=== PATIENT | male | born 1950 | race Caucasian/White ===

== ENCOUNTER 2017-01-13 17:06 | Inpatient (IN) | payer OTHER, MEDICARE ==
[~2017-01-13] VITALS: Ht 190.5 cm; Wt 88.5 kg
[~2017-01-13 17:06] MED LIST: HUMALOG100 UNIT/2 SC; LANTUS100 UNIT/1 SC; LEVOTHYROXINE137 MCG PO; PRAVASTATIN SOD40 M2 PO
--- NOTE | 2017-01-13 17:27 | NUR ---
66 YEAR OLD MALE IDDM STATES THAT HE WAS SICK WITH THE FLU FOR THE PAST 2 DAYS AN D THAT HE COULD NOT FIND HIS INSULIN SO HE HAS NOT USED IT IN 2 DAYS. HIS DAUGHTER WENT TO CHECK ON HIM AND HIS SUGAR READ HIGH, FS 421 AT TRIAGE, PT COMPLAINS OF JUST NOT FEELING WELL, WHILE TALKING TO THIS NURSE PT PROJECTILE VOMITTED ALL OVER TRIAGE FLOOR. DENIES PAIN
--- NOTE | 2017-01-13 17:48 | ED GENERAL ADULT ---
History of Present Illness General Chief Complaint: General Adult Stated Complaint: TYPE 1 DIABETIC, ELEVATED BLOOD SUGAR Source: patient, family, old records Exam Limitations: no limitations Vital Signs & Intake/Output Vital Signs & Intake/Output Vital Signs Date Time Temp Pulse Resp B/P Pulse O2 O2 Flow FiO2 Ox Delivery Rate 01/13 1724 97.6 96 18 119/63 93 Room Air Allergies Coded Allergies: NO KNOWN ALLERGIES (02/29/16) Triage Note: 66 YEAR OLD MALE IDDM STATES THAT HE WAS SICK WITH THE FLU FOR THE PAST 2 DAYS AN D THAT HE COULD NOT FIND HIS INSULIN SO HE HAS NOT USED IT IN 2 DAYS. HIS DAUGHTER WENT TO CHECK ON HIM AND HIS SUGAR READ HIGH, FS 421 AT TRIAGE, PT COMPLAINS OF JUST NOT FEELING WELL, WHILE TALKING TO THIS NURSE PT PROJECTILE VOMITTED ALL OVER TRIAGE FLOOR. DENIES PAIN Triage Nurses Notes Reviewed? yes Onset: Abrupt Duration: day(s): (3), constant, continues in ED Timing: recent history Injury Environment: home No Modifying Factors: none HPI: 66-year-old male comes into emergency room with complaints of not taking his insulin for the past 3 days. Patient reports that the insulin fell behind his bed and he cannot find it and therefore he just didn't take it. He did not call his doctor. He has been feeling weak and dizzy. Type I diabetic. Diagnosed at 22 years age. Denies any chest pain. Patient reports that he was sick earlier in the week with flulike symptoms. Last Wednesday he started with a cough fever chills myalgias. Patient reports although symptoms have resolved other than a residual cough. Denies any fever or chills or bodyaches at this time. Denies any physical pain. One episode of vomiting about 5 minutes ago. (ROXI BEAL) Reconcile Medications Insulin Aspart (Novolog) 100 UNIT/ML VIAL 0 SQ TIDAC/HS DIABETES BEFORE MEALS Blood Insulin Sugar Units <80 0 81-150 6 151-200 7 201-250 8 251-300 9 301-350 10 351-400 11 >400 12 units and Call Doctor AT BEDTIME Blood Insulin Sugar Units <80 0 81-100 0 101-200 0 201-250 0 251-300 2 301-350 3 351-400 4 >400 5 units and Call Doctor Insulin Detemir (Levemir) 100 UNIT/ML VIAL 10 UNITS SQ BID DIABETES Levothyroxine Sodium 137 MCG TABLET 1 TAB PO DAILY THYROID (Reported) Pravastatin Sodium 40 MG TABLET 1 TAB PO DAILY CHOLESTEROL (Reported) (CINDY JOHNSON,NICOLAS) Past History Travel History Traveled to [place] past 21 day No Medical History Any Pertinent Medical History? see below for history Neurological: NONE EENT: NONE Cardiovascular: NONE Respiratory: NONE Gastrointestinal: NONE Hepatic: NONE Renal: NONE Musculoskeletal: NONE Psychiatric: NONE Endocrine: diabetes, hyperthyroidism Blood Disorders: NONE Cancer(s): NONE Surgical History Surgical History: non-contributory Psychosocial History What is your primary language Indian Tobacco Use: Never used ETOH Use: denies use Illicit Drug Use: denies illicit drug use Family History Hx Contributory? No (ROXI BEAL) Review of Systems Review of Systems Constitutional: Reports: no symptoms. EENTM: Reports: no symptoms. Respiratory: Reports: see HPI. Cardiovascular: Reports: no symptoms. GI: Reports: see HPI. Genitourinary: Reports: no symptoms. Musculoskeletal: Reports: no symptoms. Skin: Reports: no symptoms. Neurological/Psychological: Reports: no symptoms. Hematologic/Endocrine: Reports: no symptoms. Immunologic/Allergic: Reports: no symptoms. All Other Systems: Reviewed and Negative (ROXI BEAL) Physical Exam Physical Exam General Appearance: well developed/nourished, no apparent distress, alert Head: atraumatic, normal appearance Eyes: Bilateral: normal appearance, PERRL, EOMI. Ears, Nose, Throat: normal pharynx, normal ENT inspection, hearing grossly normal Neck: normal inspection, full range of motion Respiratory: normal breath sounds, no respiratory distress Cardiovascular: regular rate/rhythm Gastrointestinal: soft Back: normal inspection Extremities: normal inspection, normal range of motion Neurologic/Psych: awake, alert, oriented x 3, normal mood/affect Skin: intact, normal color Core Measures ACS in differential dx? No CVA/TIA Diagnosis: No Severe Sepsis Present: No Septic Shock Present: No (ROXI BEAL) Progress Differential Diagnoses I considered the following diagnoses in my evaluation of the patient: DKA, hyperosmolar, dehydration, pneumonia, sepsis, electroluyte imblance Diagnostic Imaging: Viewed by Me: Radiology Read. Discussed w/RAD: Radiology Read. Radiology Impression: SERVICE DATE: 01/13/17 EXAM TYPE: RAD - XRY- PORTABLE CHEST XRAY EXAMINATION: XR PORTABLE CHEST CLINICAL INFORMATION: Cough, fever COMPARISON: None TECHNIQUE: Portable AP view of the chest was obtained. FINDINGS: Kyphotic projection with rotation. The cardiac size, mediastinal contours, zoie and vasculature are within normal limits. There is no consolidation, pleural fluid or pneumothorax. Limited bone detail. No definite focal bony lesion IMPRESSION: No consolidation or edema. DICTATED BY: JANIA LEGER MD DATE/TIME DICTATED:01/13/171827 ENERGY CONSERVATION TECHNICIAN:ALESSIA DATE/TIME TRANSCRIBED:01/13/171827 Initial ED EKG: normal intervals, normal p-waves, normal sinus rhythm, rate (84) , nonspecific ST T wave chg, LEFT ANTERIOR FASCICULAR BLOCK (ROXI BEAL) Plan of Care: Orders Procedure Date/time Status Nothing by Mouth 01/14 B Active LACTIC ACID 01/13 2046 Active Add-on Test (ER Only) 01/13 1915 Active Admit to inpatient 01/13 1914 Active Vital Signs 01/13 1914 Active Code Status 01/13 1914 Active URINE DRUGS OF ABUSE 01/13 184 Active URINALYSIS 01/13 184 Complete MIXED VENOUS BLOOD GAS (GEN) 01/13 1746 Complete TROPONIN LEVEL 01/13 1746 Active LACTIC ACID 01/13 1746 Active COMPREHENSIVE METABOLIC PANEL 01/13 1746 Active CBC WITHOUT DIFFERENTIAL 01/13 1746 Complete ACETONE 01/13 174 Active EKG 01/13 1746 Active Current Medications Sig/Pollo Start time Last Medication Dose Stop Time Status Admin Insulin Human Regular 100 UNIT ONCE ONE 01/13 1900 AC (Novolin R (Insulin 01/14 1959 Drip)) Sodium Chloride 100 ML (Normal Saline 0.9%) Insulin Human Regular 5 UNITS ONCE ONE 01/13 1830 CAN (Novolin R) 01/13 1831 Laboratory Tests 01/13/17 184: Methadone Screen Pending, Barbiturate Screen Pending, Ur Phencyclidine Scrn Pending, Amphetamines Screen Pending, U Benzodiazepines Scrn Pending, Urine Cocaine Screen Pending, Urine Cannabis Screen Pending, Urine Color YEL, Urine Clarity CLEAR, Urine pH 5.5, Ur Specific Melba 1.020, Urine Protein NEG, Urine Ketones >=80, Urine Nitrite NEG, Urine Bilirubin NEG, Urine Urobilinogen 0.2, Ur Leukocyte Esterase NEG, Ur Microscopic EXAM NOT REQUIRED, Urine Hemoglobin NEG, Urine Glucose >=1000 H 01/13/17 1815: Bicarbonate Actual 12.3 L, Mixed VBG pH 7.18 L, Mixed VBG pCO2 34 L, Mixed VBG O2 Saturation 44, P-50 (Temp Corrected) Pending, Carboxyhemoglobin 1.0 L, O2 Concentration % RA, O2 Delivery Method RA 01/13/17 1754: Anion Gap 27 H, Estimated GFR 51 L, BUN/Creatinine Ratio 19.3, Glucose 599 *H, Lactic Acid 3.6 H, Calcium 9.0, Total Bilirubin 1.2, AST 46, ALT 44, Alkaline Phosphatase 150 H, Troponin I < 0.01, Total Protein 7.4, Albumin 4.3, Globulin 3.1, Albumin/Globulin Ratio 1.4, CBC w Diff NO MAN DIFF REQ, RBC 4.86, MCV 100.7 H, MCH 33.9 H, RDW 13.1, MPV 8.1, Gran % 85.4 H, Lymphocytes % 4.2 L, Monocytes % 10.3 H, Eosinophils % 0.1, Basophils % 0 L, Absolute Granulocytes 7.3 H, Absolute Lymphocytes 0.4 L, Absolute Monocytes 0.9 H, Absolute Eosinophils 0, Absolute Basophils 0, PUBS MCHC 33.7, Acetone Level Pending Departure Departure Condition: Stable Referrals: UNKNOWN (PCP/Family) Departure Forms: Customer Survey General Discharge Information (ROXI BEAL) Departure Time of Disposition: 1913 Disposition: STILL A PATIENT Clinical Impression Primary Impression: DKA (diabetic ketoacidoses) Prescriptions: Current Visit Scripts Insulin Detemir (Levemir) 10 UNITS SQ BID #6 Vial Insulin Aspart (Novolog) 0 SQ TIDAC/HS #10 VIAL BEFORE MEALS Blood Insulin Sugar Units <80 0 81-150 6 151-200 7 201-250 8 251-300 9 301-350 10 351-400 11 >400 12 units and Call Doctor AT BEDTIME Blood Insulin Sugar Units <80 0 81-100 0 101-200 0 201-250 0 251-300 2 301-350 3 351-400 4 >400 5 units and Call Doctor Admission Note Spoke With: [facility] Documentation of Exam: Documentation of any treatments & extenuating circumstances including Concerns Regarding Discharge (functional status, medication knowledge or non-compliance, living conditions, etc.) that warrant an admission rather than observation: [IV FLUIDS, IV INSULIN DRIP, MONITOR ELECTROLYTES CLOSELY, ADD K TO FLUIDS WHEN NEEDED, ENDOCRINOLOGY CONSULTATION] PA/TYPING ELEMENT MACHINE OPERATOR Co-Sign Statement Statement: ED Attending supervision documentation- [X] I saw and evaluated the patient. I have also reviewed all the pertinent lab results and diagnostic results. I agree with the findings and the plan of care as documented in the PA's/TYPING ELEMENT MACHINE OPERATOR's documentation. [X] I have reviewed the ED Record and agree with the PA's/TYPING ELEMENT MACHINE OPERATOR's documentation. [] Additions or exceptions (if any) to the PAs/TYPING ELEMENT MACHINE OPERATOR's note and plan are summarized below: [] (CINDY JOHNSON,NICOLAS) Critical Care Note Critical Care Note Critical Care Time: 30-74 min (60 MINUTES) (ROXI BEAL)
--- NOTE | 2017-01-13 17:52 | NUR ---
IV ESTABLISHED AND NS IVF BOLUS RUNNING. PT IS LETHARGIC BUT ABLE TO CONVERSATE AND ORIENTED X3.
--- NOTE | 2017-01-13 18:02 | NUR ---
PT TO RADIOLOGY VIA STRETCHER
[2017-01-13 18:10] LABS: ABSOLUTE BASOPHIL COUNT 0 /CUMM (0.0-0.2); ABSOLUTE EOSINOPHIL COUNT 0 /CUMM (0.0-0.7); ABSOLUTE GRANULOCYTE CT 7.3 /CUMM (1.4-6.5); ABSOLUTE LYMPH COUNT 0.4 /CUMM (1.2-3.4); ABSOLUTE MONOCYTE COUNT 0.9 /CUMM (0.10-0.60); BASOPHIL % 0 % (0.0-2.0); EOSINOPHIL % 0.1 % (0-5); GRANULOCYTE % 85.4 % (42.2-75.2); HEMATOCRIT 48.9 % (42-52); MEAN CORPUSCULAR HGB 33.9 PG (27.0-31.0); MEAN CORPUSCULAR HGB CONC 33.7 G/DL (33.0-37.0); MEAN CORPUSCULAR VOLUME 100.7 FL (80.0-94.0); MEAN PLATELET VOLUME 8.1 FL (7.4-10.4); PLATELET COUNT 194 /CUMM (130-400); RBC DISTRIBUTION WIDTH 13.1 % (11.5-14.5); RED BLOOD CELL CT 4.86 /CUMM (4.70-6.10); WHITE BLOOD CELL COUNT 8.6 /CUMM (4.8-10.8)
--- NOTE | 2017-01-13 18:20 | NUR ---
RT CALLED FOR VBG
--- NOTE | 2017-01-13 18:32 | RADIOLOGY REPORT ---
EXAMINATION: XR PORTABLE CHEST CLINICAL INFORMATION: Cough, fever COMPARISON: None TECHNIQUE: Portable AP view of the chest was obtained. FINDINGS: Kyphotic projection with rotation. The cardiac size, mediastinal contours, zoie and vasculature are within normal limits. There is no consolidation, pleural fluid or pneumothorax. Limited bone detail. No definite focal bony lesion IMPRESSION: No consolidation or edema.
--- NOTE | 2017-01-13 18:33 | NUR ---
COLUMBA SHRESTHA IN ROOM TO DISCUSS PLAN
--- NOTE | 2017-01-13 19:00 | NUR ---
CRITICAL TEST RESULTS [id number] MELLO ROBERTS 66 M TESTS AND RESULTS: GLUCOSE 599, K 6.2 Results received and read back by: TUAN MCFADDEN Results received date and time: 01/13/17 190 The following provider was notified of the results, and read the results back: FDAY Notified date and time: 01/13/17 at 1902
--- NOTE | 2017-01-13 19:04 | NUR ---
DAUGHTER RAFA CAN BE REACHED AT [phone] OR AT HER WORK (SCHOOL) [phone]
--- NOTE | 2017-01-13 19:38 | NUR ---
DR NINO AT BEDSIDE FOR EVAL. REPEAT ACCUCHECK 45 MINS AFTER ADMINISTRATION OF IV INSULIN 497 AND MD AWARE. INSULIN GTT INITIATED AT 7 UNITS PER HOUR PER ORDER AND DR WHITE. DR NINO IN AGREEMENT WITH RATE. PT REFUSING CHOI CATH AT THIS TIME AND AGREEING TO USE URINAL FOR OUTPUT MONITORING. PAPER SCRUB PANTS PROVIDED TO ENCOURAGE CHANGING OUT OF STREET CLOTHES. REMAINS AAOX3 AND DENIES PAIN. NORMAL SINUS ON CM WITH OCCASSIONAL PVC, RATE 90'S. DENIES SOB. ABLE TO STAND INDEPENDENTLY. NEUROS INTACT. DENIES SKIN BREAKDOWN. NS IVF CONTINUE TO RUN WIDE OPEN
--- NOTE | 2017-01-13 20:16 | History & Physical ---
YUNIOR YOO 01/13/17 2015: General Information and HPI MD Statement: I have seen and personally examined MELLO ROBERTS and documented this H&P. The patient is a 66 year old M who presented with a patient stated chief complaint of [dka]. Source of Information: patient Exam Limitations: no limitations History of Present Illness: This is a 66-year-old male with past medical history of type 1 diabetes mellitus , hypothyroidism on levothyroxine, hyperlipidemia on pravastatin came in from home today after being found hyperglycemic at home by daughter. Apparently the patient was doing all right, until one week ago he started having flulike symptoms, generalized body ache, postnasal dripping, lethargy and weakness along with mild headache and severe cough. He says that he had very loud cough however he was not bringing up a lot of sputum. He tried taking over -the-counter aspirin. He was improving gradually when on Wednesday which is 2 days prior to today's admission, he lost the whole bag of his diabetes supply which contain medications, fingerstick, lancet behind his bed, and he could never get it back therefore did not take any Humalog did not monitor his sugar since 01/11/2017. 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 wharton was 6 months ago. After this 5 months ago, he started to have frequent episodes of hypoglycemia into 40s and 50s for which he had a couple of ER visits , he himself thought that this was secondary to reaction to Lantus he stopped taking his Lantus which normally he used to take 20 units subcutaneous daily at bedtime by himself and has not been taking any Lantus for last 4-5 months. In the ER he was alert oriented, little irritable but was cooperative and provided the entire history himself. His daughter lives nearby and visits him on and off. 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 He is independent with all activities of daily living. Allergies/Medications Allergies: Coded Allergies: NO KNOWN ALLERGIES (02/29/16) Home Med list Insulin Lispro (Humalog) (Unknown Strength) VIAL (Unknown Dose) SC AC DIABETES (Reported) Insulin-Lantus (Lantus) 100 UNIT/1 ML VIAL 20 UNITS SC QHS DIABETES (Reported ) Levothyroxine Sodium 137 MCG TABLET 1 TAB PO DAILY THYROID (Reported) Pravastatin Sodium 40 MG TABLET 1 TAB PO DAILY CHOLESTEROL (Reported) Compliance With Home Meds: POOR Past History Travel History Traveled to [place] past 21 day No Medical History Neurological: NONE EENT: NONE Cardiovascular: NONE Respiratory: NONE Gastrointestinal: NONE Hepatic: NONE Renal: NONE Musculoskeletal: NONE Psychiatric: NONE Endocrine: diabetes, hyperthyroidism Blood Disorders: NONE Cancer(s): NONE Surgical History Surgical History: non-contributory Past Family/Social History Psychosocial History Where do you live? Home Who Do You Live With? self Services at Home: None Primary Language: [place] Smoking Status: Former Smoker (quit 45 years ago) ETOH Use: denies use Illicit Drug Use: denies illicit drug use Functional Ability ADLs Independent: dressing, eating, toileting, bathing. Ambulation: independent IADLs Independent: shopping, housework, finances, food prep, telephone, transportation , medication admin. 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 Denies: diaphoresis. EENTM: Reports: nasal congestion. Denies: blurred vision, double vision, visual changes, eye pain, eye drainage, eye tearing. Cardiovascular: Denies: chest pain, edema, orthopena, palpitations, peripheral edema, syncope. Respiratory: Reports: cough. Denies: hemoptysis, orthopnea, short of breath, sputum production, stridor, wheezing. GI: Denies: abdominal pain, bloating, constipation, diarrhea, distention, melena. Genitourinary: Reports: frequency. Denies: discharge, dysuria, hematuria. Musculoskeletal: Reports: joint pain, muscle pain. Denies: back pain, gout, joint swelling. Skin: Reports: dryness. Denies: cysts, change in skin color, change in hair/nails. Neurological/Psychological: Denies: anxiety, ataxia, cognitive dysfunction, confusion, depressed, dementia. Hematologic/Endocrine: Reports: no symptoms. Immunologic/Allergic: Reports: no symptoms. All Other Systems: Reviewed and Negative Exam & Diagnostic Data Last 24 Hrs of Vital Signs/I&O Vital Signs Date Time Temp Pulse Resp B/P Pulse O2 O2 Flow FiO2 Ox Delivery Rate 01/13 2113 98.0 90 16 125/60 99 Room Air 01/13 1950 98.0 94 16 128/84 98 Room Air 01/13 1943 99 Room Air 01/13 1936 97.8 96 16 146/69 96 Room Air 01/13 1724 97.6 96 18 119/63 93 Room Air Physical Exam General Appearance Alert, Oriented X3, Cooperative, irritable Skin No Rashes, No Breakdown HEENT Atraumatic, PERRLA, EOMI Neck Supple, No JVD Lymphatic no lad Cardiovascular Regular Rate, Normal S1, Normal S2, No Murmurs Lungs Clear to Auscultation, Normal Air Movement Abdomen Normal Bowel Sounds, Soft, No Tenderness Neurological Normal Speech, Strength at 5/5 X4 Ext, Normal Tone, Sensation Intact, Cranial Nerves 3-12 NL, Reflexes 2+ Extremities No Clubbing, No Cyanosis, No Edema, Normal Pulses Vascular Normal Pulses Last 24 Hrs of Labs/Sean: Laboratory Tests 01/13/172124: Lactic Acid Pending 01/13/172124: Sodium Pending, Potassium Pending, Chloride Pending, Carbon Dioxide Pending, Anion Gap Pending, BUN Pending, Creatinine Pending, Glucose Pending, Calcium Pending, Phosphorus Pending, Magnesium Pending, Total Bilirubin Pending, AST Pending, ALT Pending, Albumin Pending 01/13/17 184: Urine Opiates Screen < 100.00, Methadone Screen < 40, Barbiturate Screen < 60, Ur Phencyclidine Scrn < 6.00, Amphetamines Screen < 100, U Benzodiazepines Scrn < 85, Urine Cocaine Screen < 50, Urine Cannabis Screen < 5.00, Urine Color YEL, Urine Clarity CLEAR, Urine pH 5.5, Ur Specific [place] 1.020, Urine Protein NEG, Urine Ketones >=80, Urine Nitrite NEG, Urine Bilirubin NEG, Urine Urobilinogen 0.2, Ur Leukocyte Esterase NEG, Ur Microscopic EXAM NOT REQUIRED, Urine Hemoglobin NEG, Urine Glucose >=1000 H 01/13/171814: Bicarbonate Actual 12.3 L, Mixed VBG pH 7.18 L, Mixed VBG pCO2 34 L, Mixed VBG O2 Saturation 44, P-50 (Temp Corrected) Pending, Carboxyhemoglobin 1.0 L, O2 Concentration % RA, O2 Delivery Method RA 01/13/17 1754: Anion Gap 27 H, Estimated GFR 51 L, BUN/Creatinine Ratio 19.3, Glucose 599 *H, Lactic Acid 3.6 H, Calcium 9.0, Total Bilirubin 1.2, AST 46, ALT 44, Alkaline Phosphatase 150 H, Troponin I < 0.01, Total Protein 7.4, Albumin 4.3, Globulin 3.1, Albumin/Globulin Ratio 1.4, CBC w Diff NO MAN DIFF REQ, RBC 4.86, MCV 100.7 H, MCH 33.9 H, RDW 13.1, MPV 8.1, Gran % 85.4 H, Lymphocytes % 4.2 L, Monocytes % 10.3 H, Eosinophils % 0.1, Basophils % 0 L, Absolute Granulocytes 7.3 H, Absolute Lymphocytes 0.4 L, Absolute Monocytes 0.9 H, Absolute Eosinophils 0, Absolute Basophils 0, PUBS MCHC 33.7, Acetone Level POSITIVE AT 1 :32 DIL Diagnostic Data EKG Results NSR, rate of 95,low voltage in frontal leads, ME 204,Qtc 451 CXR Results NO acute cardiopulmonary findings. Assessment/Plan Assessment: In summary this is a 66-year-old, previous smoker (45 years ago), nonalcoholic, no other illicit drug abuse male living by himself with past medical history of type 1 diabetes mellitus on insulin, hypothyroidism on levothyroxine, hyperlipidemia on statin came in with chief complain of lethargy and weakness along with hyperglycemia, with flulike symptoms including lethargy, weakness, body ache, postnasal dripping one week prior to admission, which had been improving, however had worsening hyperglycemia after being noncompliant with his diabetic medications, self stopped the Lantus 5 months prior to this admission and did not take his Humalog since last 48 hours due to losing his diabetic supplies behind his bed which he could not retrieve. Vitals in the ER afebrile temperature of 97.6, pulse of 96, respiration of 18, blood pressure of 119/63, 93% on room air. Relevant labs white count of 8.6, H/H was 16.5/48.9, platelet of 194. Sodium noted to be 128, potassium of 6.2, BUN and creatinine 27/1.4, blood sugar of 599. ABG showed anion gap metabolic acidosis with pH of 7.18, PCO2 of 34, bicarbonate of 12, anion gap of 27. Initial set of lactic acid was elevated to 3.6. Liver function tests are within normal limits, alkaline phosphatase elevated to 150. First set of troponin was negative less than 0.01. EKG showed normal sinus rhythm with a rate of 94, QTC 451, no acute ST-T wave changes. Chest x-ray did not show any acute cardiopulmonary changes. Patient had one episode of vomiting while in the ER. Problem list along with assessment and plan. Problem #1 type 1 diabetes mellitus with diabetic ketoacidosis. * Anion gap metabolic acidosis with anion gap of 27, blood sugar of 599. * Continue to monitor vitals every shift, continue monitoring fingersticks every hour, continue IV insulin drip and titrate as per fingerstick. * Continue normal saline at the rate of 150-200 mL for now. * Switch IV normal saline to D5 half normal saline once the sugars are below 250. * Potassium noted to be 6.2, follow-up ICU bundle ( 4 hours latter) showed potassium of 4.5. * Once the sugar is below 250 we will add 20 of KCl to the changed iv fluids. * Continue to monitor ICU bundle along with anion gap every 4 hourrs, next icu bundle at 2 AM followed by 6 AM. * Repeat ABG at 6 AM. * Once the anion gap is less than 12, bicarbonate is greater than 15 and pH is greater than 7.3, we will consider switching the insulin drip to subcutaneous insulin ( in am) * Continue to monitor potassium closely. * Patient is tolerating food fine, will starton full liquid diet for now. * Advance to diabetic diet once the patient is switched to subcutaneous insulin. * Case discussed with endocrinology Riky Floyd MD,plan disucssed, he will see the patient in a.m. * Continue insulin drip tonight and titrate to maintain the sugars above 180. * Continue to trend lactic acid untill below 2. * Will check Hba1c Problem #2 Acute kideny injury * BUN and creatinine noted to be 27/1.4. * Most likely secondary to dehydration. * Continue IV hydration and continue to monitor creatinine. * Repeat ICU lab bundle showed improvement in creatinine. * Continue to monitor intake and output. * Avoid nehprotoxins. Problem #3 hyponatremia - 128 * Psuedohyponetremia due to hyperglucemia * Corrected sodium levels of 136. * Continue to treat DKA with hydration. * Continue to monitor. Problem #4 hypothyroidism. * TSH and free t4 Added * Continue levothyroxine at 137 mcg daily. Problem #4 Hyperlipidemia * continue pravastatin FC DVt Px : heparin PP Full liquid diet, advance to diabetic once switched to Sc insulin As Ranked By This Provider Problem List: 1. DKA (diabetic ketoacidoses) 2. Acute kidney failure 3. Hyperlipidemia 4. Hypothyroidism Core Measures/Miscellaneous Acute Coronary Syndrome ACS Diagnosis: No Cerebrovascular Accident CVA/TIA Diagnosis: No Congestive Heart Failure CHF Diagnosis: No Venous Thromboembolism VTE Risk Factors: Age > 40 No [facility] VTE prophylaxis d/t: No contraindications No VTE Pharm Prophylaxis d/t: No contraindications VTE Diagnosis: No VTE Type: NONE VTE Confirmed by (Test): NONE Severe Sepsis Severe Sepsis Present: No Septic Shock Septic Shock Present: No Miscellaneous Documentation Attending Case Discussed With: AYAZ NINO MD Primary Care Physician: UNKNOWN Patient sees these Specialists Endocrionologist Dr Husam Wharton, Dr floyd to see patient in am. Level of Patient Care: Critical Care (CRI) JAQUELINE NINO MD 01/13/17 2353: Attending MD Review Statement Attending Statement Attending MD Statement: examined this patient, discuss w/resident/PA/DUSTLESS OPERATOR, agreed w/resident/PA/DUSTLESS OPERATOR Attending Assessment/Plan: 66 yo M with h/o T1DM for over 46 yrs (follows Dr. Husam Wharton at [place]), hypothyroidism, HLD, who had a prodrome of flu-like symptoms 3 days ago (self treated with aspirin), and did not take his insulin for past 2 days (stating his insulin pouch fell under his bed), is here feeling unwell and with sugars of > 400. While in the ER, he was nauseous and vomited twice. C/o cough, unable to bring up phlegm, chest discomfort associated with cough and poor appetite. He denies fever, chills, dyspnea, abdominal pain, diarrhea or urinary symptoms. Patient has not taken levemir or lantus for over 6 months because it interacts with Humalog cauging him multiple episodes of hypoglycemia. VSS. He has dry mucous membranes, otherwise unremarkable exam. Labs: macrocytosis, Na 128, K 6.2, bicarb 12, AG 27, BUN 27, creat 1.4 (baseline 0.8), glucose 599, lactic acid 3.6, trop neg. AB.18/34/44/12. UA clear, with glucose >1000. S. Acetone positive. Utox neg. CXR neg. EKG: SR. 1. Diabetic ketoacidosis 2/2 noncompliance with lactic acidosis. ICU admit, accucheks Q1, NS 3L bolus followed by maintenance, insulin drip titrate based on sugars, ICU bundle Q4, once sugars <250 change fluids to D5-1/2NS with KCL. Endo consulted. Check HbA1c. Clear liquid diet. Once acidosis resolves, AG closed will switch to subcut insulin. No need to repeat ABG. Initiate IV PPI. Trend lactic acid after adequate IV hydration. Repeat EKG and troponin in AM. 2. KIM likely prerenal. Hydrate and recheck labs. Avoid NSAIDs. 3. Pseudohyponatremia. Corrected sodium for hyperglycemia is 136. 4. Macrocytosis. Check TSH, free T4, B12. Check alcohol level although patient reports occasional alcohol use. 5. Continue synthroid and statin home meds. DVT ppx Hep SC. Full code. TTS > 45 mins
--- NOTE | 2017-01-13 21:00 | NUR ---
ICU RESIDENT AT BEDSIDE. INSTRUCTED TO HOLD BLOODWORK UNTIL ALL ORDERS ARE IN SHORTLY. PT ABLE TO STAND INDEPENDENTLY TO USE URINAL. CALL PINON IN REACH. OFFERS NO COMPLAINTS AT THIS TIME.
--- NOTE | 2017-01-13 21:25 | NUR ---
INSULIN GTT DECREASED TO 3 UNITS/HR PER ORDER BY DR NINO AND DR YOO. REPEAT ACCUCHECK WAS 306. VSS AND OFFERS NO COMPLAINTS. LIGHTS DIMMED FOR COMFORT. OUTPUT TOTAL 500ML CLEAR YELLOW URINE.
--- NOTE | 2017-01-13 21:55 | NUR ---
CRITICAL TEST RESULTS [id number] MELLO ROBERTS 66 M TESTS AND RESULTS: LACTIC 2.6 Results received and read back by: JOSE SONG Results received date and time: 01/13/170 The following provider was notified of the results, and read the results back: DR YOO PAGED Notified date and time: 01/13/17 at [id number]
--- NOTE | 2017-01-13 22:14 | NUR ---
PER DR YOO, NS IVF AT 150ML AND MAINTAIN INSULIN GTT AT 3ML(UNITS)/HR. WILL ADJUST FLUIDS ONCE ACCUCHECK BELOW 250. PT RESTING COMFORTABLY AT THIS TIME. VSS
--- NOTE | 2017-01-13 22:53 | Admission Certification ---
Admission Certification Certification Statement - As attending physician, I certify that at the time of - admission, based on clinical presentation, severity of - symptoms, need for further diagnostic testing and - therapeutic interventions, and risk of adverse outcomes - without in-hospital treatment, in my clinical assessment, - this patient requires an acute hospital stay for a minimum - of two nights or longer. I have also considered psychsocial - factors such as support system, advanced age, financial - issues, cognitive issues, and failed out-patient treatments, - past re-admission history, safety of patient, and lack of - compliance as applicable. Specific rationale supporting this admission is: Diabetic ketoacidosis
--- NOTE | 2017-01-13 23:15 | NUR ---
ACCUCHECK 301. FLUIDS INCREASED TO 250ML/HR PER ORDER PER DR GAYTAN. INSULIN GTT INCREASED TO 4 UNITS PER HOUR PER ORDER WELL. CONTINUES TO MENTATE APPROPRIATELY. CALL PINON IN PLACE AND INFORMED WAITING PROVIDED.
--- NOTE | 2017-01-14 00:10 | NUR ---
REPORT CALLED TO FALGUNI MEEK PT TO GO TO RM 110
[2017-01-14 01:29] VITALS: BP 118/56
--- NOTE | 2017-01-14 01:44 | NUR ---
ADMITTED A 66 YEAR OLD MALE WHO CAME IN THE ER BECAUSE HIS ACCUCHECK AT HOME READ HIGH. HE HAD THE FLU AND HAS NOT BEEN TAKING HIS INSULIN. GLUCOSE WAS 599. HE WAS STARTED ON INSULIN GTT. HE IS ALERT AND ORIENTED, DENIES PAIN AT THIS TIME. ON INSULIN GTT AT 4 UNITS/H.
--- NOTE | 2017-01-14 01:48 | NUR ---
ACCUCHECK 0030 237. REPORTED TO . D51/2NS +20MEQ KCL STARTED AT 150ML/H. INSULIN GTT AT 4UNITS/H.
--- NOTE | 2017-01-14 07:03 | Cons- CRCU ---
General Information and HPI Consulting Request Date of Consult: 01/14/17 Requested By: Dr. Sheppard Reason for Consult: DKA History of Present Illness: Pt was admitted for DKA, did not take insulin for 3 days. As per his daughter, this is not typical of him. If he runs out of insulin in the past, he would use hers. OVer the past 3 days, he has been asking his daughter to come see him but she refused because he has "the flu". In the past, he has had psych evaluation with diagnosis of manic depressive but he refused meds. We will obtain psych consult. I spoke to Cordell De, who will try to see him today, if not tomorrow. His AG has closed, down to 7 this morning, levemir and novolog started as per [facility], diet advanced. IVF and insulin drip discontinued 1 hr after novolog given. This morning, he was feeling tired and wanted to be left alone. He was somnolent but arousable. If he continues to do well, he can be transferred to today. Allergies/Medications Allergies: Coded Allergies: NO KNOWN ALLERGIES (02/29/16) Home Med List: Insulin Lispro (Humalog) (Unknown Strength) VIAL (Unknown Dose) SC AC DIABETES (Reported) Insulin-Lantus (Lantus) 100 UNIT/1 ML VIAL 20 UNITS SC QHS DIABETES (Reported ) Levothyroxine Sodium 137 MCG TABLET 1 TAB PO DAILY THYROID (Reported) Pravastatin Sodium 40 MG TABLET 1 TAB PO DAILY CHOLESTEROL (Reported) Review of Systems Review of Systems Constitutional: Reports: see HPI. Past History Travel History Traveled to [place] past 21 day No Medical History Neurological: NONE EENT: NONE Cardiovascular: NONE Respiratory: NONE Gastrointestinal: NONE Hepatic: NONE Renal: NONE Musculoskeletal: NONE Psychiatric: NONE Endocrine: diabetes, hyperthyroidism Blood Disorders: NONE Cancer(s): NONE Surgical History Surgical History: non-contributory Family History Relations & Conditions If Any: Relation not specified for: *No pertinent family history Psychosocial History Where Do You Live? Home Who Do You Live With? self Services at Home: None Primary Language: Azeri Smoking Status: Former Smoker (quit 45 years ago) ETOH Use: denies use Illicit Drug Use: denies illicit drug use Functional Ability ADLs Independent: dressing, eating, toileting, bathing. Ambulation: independent IADLs Independent: shopping, housework, finances, food prep, telephone, transportation , medication admin. 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 Exam & Diagnostic Data Last 24 Hrs of Vital Signs/I&O Vital Signs Date Time Temp Pulse Resp B/P Pulse O2 O2 Flow FiO2 Ox Delivery Rate 01/14 0800 99.1 70 18 120/54 96 Room Air 01/14 0400 95 Room Air 01/14 0151 95 Room Air 01/14 0140 95 01/14 0129 98.0 82 16 118/56 95 01/13 2329 97 Room Air 01/13 2317 98.2 87 16 112/54 98 Room Air 01/13 2211 86 16 126/65 97 Room Air 01/13 2113 98.0 90 16 125/60 99 Room Air 01/13 2005 98 Room Air 01/13 1950 98.0 94 16 128/84 98 Room Air 01/13 1943 99 Room Air 01/13 1936 97.8 96 16 146/69 96 Room Air 01/13 1724 97.6 96 18 119/63 93 Room Air Intake & Output 01/14 1600 01/14 0800 01/14 0000 Intake Total 1025 4000 Output Total 300 850 Balance 725 3150 Intake, IV 825 4000 Intake, Oral 200 Output, Urine 300 850 Patient 88.451 kg 92.986 kg Weight Physical Exam General Appearance: somnolent but arousable. was alert and awake later on. Respiratory: normal breath sounds Cardiovascular: regular rate/rhythm Gastrointestinal: normal bowel sounds, soft, non-tender Last 48 Hrs of Labs/Sean: Laboratory Tests 01/14/17 0615: Lactic Acid 0.9 01/14/17 0615: Anion Gap 7, Estimated GFR > 60, Glucose 189 H, Calcium 8.0 L, Phosphorus 2.8, Magnesium 2.1, Total Bilirubin 0.4, AST 28, ALT 42, Troponin I < 0.01, Albumin 2.9 L, CBC w Diff NO MAN DIFF REQ, RBC 3.93 L, MCV 100.5 H, MCH 33.9 H, RDW 13.4, MPV 7.8, Gran % 67.3, Lymphocytes % 16.8 L, Monocytes % 15.4 H, Eosinophils % 0.1, Basophils % 0.4, Absolute Granulocytes 3.4, Absolute Lymphocytes 0.9 L, Absolute Monocytes 0.8 H, Absolute Eosinophils 0, Absolute Basophils 0, PUBS MCHC 33.8 01/14/17 0540: pH 7.41, pCO2 33 L, pO2 74 L, HCO3 20 L, ABG O2 Sat (Measured) 94.0 L, P-50 (Temp Corrected) Y, Carboxyhemoglobin 0.3 L, O2 Concentration % RA, Temperature 99.1, Phlebotomy Draw Site RIGHT RADIAL 01/14/17 0200: Anion Gap 9, Estimated GFR > 60, Glucose 241 H, Calcium 7.7 L, Phosphorus 3.3, Magnesium 2.1, Total Bilirubin 0.5, AST 29, ALT 37, Albumin 3.0 L 01/13/172124: Lactic Acid 2.6 H 01/13/172124: Anion Gap 20 H, Estimated GFR > 60, Glucose 338 H, Calcium 8.0 L, Phosphorus 5.0 H, Magnesium 2.0, Total Bilirubin 0.7, AST 36, ALT 36, Albumin 3.6, TSH 0.760, Free T4 1.04 01/13/17 1840: Urine Opiates Screen < 100.00, Methadone Screen < 40, Barbiturate Screen < 60, Ur Phencyclidine Scrn < 6.00, Amphetamines Screen < 100, U Benzodiazepines Scrn < 85, Urine Cocaine Screen < 50, Urine Cannabis Screen < 5.00, Urine Color YEL, Urine Clarity CLEAR, Urine pH 5.5, Ur Specific Eva 1.020, Urine Protein NEG, Urine Ketones >=80, Urine Nitrite NEG, Urine Bilirubin NEG, Urine Urobilinogen 0.2, Ur Leukocyte Esterase NEG, Ur Microscopic EXAM NOT REQUIRED, Urine Hemoglobin NEG, Urine Glucose >=1000 H 01/13/171814: Bicarbonate Actual 12.3 L, Mixed VBG pH 7.18 L, Mixed VBG pCO2 34 L, Mixed VBG O2 Saturation 44, P-50 (Temp Corrected) Pending, Carboxyhemoglobin 1.0 L, O2 Concentration % RA, O2 Delivery Method RA 01/13/17 1754: Anion Gap 27 H, Estimated GFR 51 L, BUN/Creatinine Ratio 19.3, Glucose 599 *H, Hemoglobin A1c 6.6 H, Lactic Acid 3.6 H, Calcium 9.0, Total Bilirubin 1.2, AST 46, ALT 44, Alkaline Phosphatase 150 H, Troponin I < 0.01, Total Protein 7.4, Albumin 4.3, Globulin 3.1, Albumin/Globulin Ratio 1.4, CBC w Diff NO MAN DIFF REQ, RBC 4.86, MCV 100.7 H, MCH 33.9 H, RDW 13.1, MPV 8.1, Gran % 85.4 H, Lymphocytes % 4.2 L, Monocytes % 10.3 H, Eosinophils % 0.1, Basophils % 0 L, Absolute Granulocytes 7.3 H, Absolute Lymphocytes 0.4 L, Absolute Monocytes 0.9 H, Absolute Eosinophils 0, Absolute Basophils 0, PUBS MCHC 33.7, Serum Alcohol < 10.0, Acetone Level POSITIVE AT 1:32 DIL Assessment/Plan Impression/Plan: 66-year-old, previous smoker (45 years ago), nonalcoholic, no other illicit drug abuse male living by himself with past medical history of type 1 diabetes mellitus on insulin, hypothyroidism on levothyroxine, hyperlipidemia on statin came in with chief complain of lethargy and weakness along with hyperglycemia, with flulike symptoms including lethargy, weakness, body ache, postnasal dripping one week prior to admission, which had been improving, however had worsening hyperglycemia after being noncompliant with his diabetic medications, self stopped the Lantus 5 months prior to this admission and did not take his Humalog since last 48 hours due to losing his diabetic supplies behind his bed which he could not retrieve. Daughter concerned that it is unlike him to not take his insulin and that he might have done it to seek attention (pt has been asking her to see him but she refuses because she thinks he has the flu). Pt been diagnosed with manic depressive but refused meds. Vitals in the ER afebrile temperature of 97.6, pulse of 96, respiration of 18, blood pressure of 119/63, 93% on room air. Relevant labs white count of 8.6, H/H was 16.5/48.9, platelet of 194. Sodium noted to be 128, potassium of 6.2, BUN and creatinine 27/1.4, blood sugar of 599. ABG showed anion gap metabolic acidosis with pH of 7.18, PCO2 of 34, bicarbonate of 12, anion gap of 27. Initial set of lactic acid was elevated to 3.6. Liver function tests are within normal limits, alkaline phosphatase elevated to 150. First set of troponin was negative less than 0.01. EKG showed normal sinus rhythm with a rate of 94, QTC 451, no acute ST-T wave changes. Chest x-ray did not show any acute cardiopulmonary changes. Patient had one episode of vomiting while in the ER. # Type 1 diabetes mellitus with diabetic ketoacidosis. - On admission, anion gap metabolic acidosis with anion gap of 27, blood sugar of 599. Pt maintained on insulin drip. AG now resolved. - Potassium noted to be 6.2, 4 hours later was 4.5 * Continue to monitor vitals every shift, continue monitoring fingersticks every hour * Appreciate endo consult (Dr. Shepherd) * Continue to monitor potassium closely. * On CC 2 diet * Follow up Hba1c * If stable after lunch, can transfer to # Acute kideny injury - BUN and creatinine noted to be 27/1.4 most likely secondary to dehydration as improved to 24/0.9 with IVF. * Now off IVF * Continue to monitor intake and output. * Avoid nehprotoxins. # Hyponatremia - 128, corrected sodium levels of 136 - Psuedohyponetremia due to hyperglucemia * Continue to monitor. # Hypothyroidism. - TSH and free t4 checked * Continue levothyroxine at 137 mcg daily. # Hyperlipidemia * continue pravastatin 40 mg daily # Hx of manic depressive Psych consult appreciated Diet: CC2 DVt Px : alps and heparin FC Consult Acknowledgment - Thank you for your consult request.
--- NOTE | 2017-01-14 07:23 | Cons- Endocrinology ---
General Information and HPI Consulting Request Date of Consult: 01/14/17 Requested By: medical team Reason for Consult: Diabetic ketoacidosis Source of Information: patient, old records Exam Limitations: no limitations History of Present Illness: This 66-year-old male has a long-standing history of type 1 diabetes mellitus and hypothyroidism.. Apparently he is on 20 units of Lantus daily plus a Humalog before meals. 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 Patient was having low sugar reactions and began to taper his insulin. Apparently he has not taken his Lantus for at least a few days prior to admission. He also had an intercurrent flulike illness with a cough. Eventually he presented to the emergency room with evidence of diabetic ketoacidosis. The patient sugar was 599 with a creatinine of 1.4 sodium 128 potassium 6.2 chloride 89 CO2 12 acetone +1-32 lactic acid +3.6 and anion gap of 27. The patient has been treated with an insulin drip. He is also on D5 half-normal saline with 20 mEq KCl. His most recent labs show improvement with the one B1 26 sodium 135 potassium 4.7 CO2 was 19 and anion gap is 9. On questioning this morning the patient will not tell me whether he truly feels better. He says he just wants to sleep. Allergies/Medications Allergies: Coded Allergies: NO KNOWN ALLERGIES (02/29/16) Home Med List: Insulin Lispro (Humalog) (Unknown Strength) VIAL (Unknown Dose) SC AC DIABETES (Reported) Insulin-Lantus (Lantus) 100 UNIT/1 ML VIAL 20 UNITS SC QHS DIABETES (Reported ) Levothyroxine Sodium 137 MCG TABLET 1 TAB PO DAILY THYROID (Reported) Pravastatin Sodium 40 MG TABLET 1 TAB PO DAILY CHOLESTEROL (Reported) Review of Systems Review of Systems Constitutional: Denies: chills, fever. Cardiovascular: Denies: chest pain. Respiratory: Reports: cough. Genitourinary: Denies: dysuria. Skin: Reports: no symptoms. Past History Travel History Traveled to [place] past 21 day No Medical History Neurological: NONE EENT: NONE Cardiovascular: NONE Respiratory: NONE Gastrointestinal: NONE Hepatic: NONE Renal: NONE Musculoskeletal: NONE Psychiatric: NONE Endocrine: diabetes, hyperthyroidism Blood Disorders: NONE Cancer(s): NONE Surgical History Surgical History: non-contributory Psychosocial History Where Do You Live? Home Who Do You Live With? self Services at Home: None Primary Language: Syriac Smoking Status: Former Smoker (quit 45 years ago) ETOH Use: denies use Illicit Drug Use: denies illicit drug use Functional Ability ADLs Independent: dressing, eating, toileting, bathing. Ambulation: independent IADLs Independent: shopping, housework, finances, food prep, telephone, transportation , medication admin. 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 Exam & Diagnostic Data Last 24 Hrs of Vital Signs/I&O Vital Signs Date Time Temp Pulse Resp B/P Pulse O2 O2 Flow FiO2 Ox Delivery Rate 01/14 0400 95 Room Air 01/14 0151 95 Room Air 01/14 0140 95 01/14 0129 98.0 82 16 118/56 95 01/139 97 Room Air 01/13 2317 98.2 87 16 112/54 98 Room Air 01/131 86 16 126/65 97 Room Air 01/13 2113 98.0 90 16 125/60 99 Room Air 01/13 2005 98 Room Air 01/13 1950 98.0 94 16 128/84 98 Room Air 01/13 1943 99 Room Air 01/14 1936 97.8 96 16 146/69 96 Room Air 01/14 1724 97.6 96 18 119/63 93 Room Air Intake & Output 01/14 0800 01/14 0000 01/13 1600 Intake Total 1025 4000 Output Total 300 850 Balance 725 3150 Intake, IV 825 4000 Intake, Oral 200 Output, Urine 300 850 Patient 195 lb 205 lb Weight Vital Signs Date Time Temp Pulse Resp B/P Pulse O2 O2 Flow FiO2 Ox Delivery Rate 01/14 0400 95 Room Air 01/14 0151 95 Room Air 01/14 0140 95 01/14 0129 98.0 82 16 118/56 95 01/139 97 Room Air 01/137 98.2 87 16 112/54 98 Room Air 01/131 86 16 126/65 97 Room Air 01/13 2113 98.0 90 16 125/60 99 Room Air 01/13 2005 98 Room Air 01/13 1950 98.0 94 16 128/84 98 Room Air 01/13 1943 99 Room Air 01/14 1936 97.8 96 16 146/69 96 Room Air 01/14 1724 97.6 96 18 119/63 93 Room Air Intake & Output 01/14 0800 01/14 0000 01/13 1600 Intake Total 1025 4000 Output Total 300 850 Balance 725 3150 Intake, IV 825 4000 Intake, Oral 200 Output, Urine 300 850 Patient 195 lb 205 lb Weight Physical Exam General Appearance: alert, awake, sleepy Head: normal appearance Eyes: Bilateral: normal appearance. Neck: normal inspection Respiratory: normal breath sounds Cardiovascular: regular rate/rhythm Gastrointestinal: normal bowel sounds, soft, no organomegaly Extremities: normal inspection Labs/Sean Results: Laboratory Tests 01/14 01/14 01/14 01/14 01/13 0615 0615 0540 0200 2125 Blood Gas pH (7.35 - 7.45 PH) 7.41 pCO2 (35 - 45 TORR) 33 L pO2 (80 - 100 TORR) 74 L HCO3 (21 - 28 MEQ/L) 20 L ABG O2 Sat (Measured) (>96.0 %) 94.0 L P-50 (Temp Corrected) Y Carboxyhemoglobin (1.5 - 5.0 %) 0.3 L O2 Concentration % RA Temperature (97.0 - 100.0 FARH) 99.1 Chemistry Sodium (137 - 145 mmol/L) Pending 135 L Potassium (3.5 - 5.1 mmol/L) Pending 4.7 Chloride (98 - 107 mmol/L) Pending 108 H Carbon Dioxide (22 - 30 mmol/L) Pending 19 L Anion Gap (5 - 16) Pending 9 BUN (9 - 20 mg/dL) Pending 26 H Creatinine (0.7 - 1.2 mg/dL) Pending 1.0 Estimated GFR (>60 ml/min) > 60 Glucose (65 - 99 mg/dL) Pending 241 H Lactic Acid (0.7 - 2.1 mmol/L) Pending 2.6 H Calcium (8.4 - 10.2 mg/dL) Pending 7.7 L Phosphorus (2.5 - 4.5 mg/dL) Pending 3.3 Magnesium (1.6 - 2.3 mg/dL) Pending 2.1 Total Bilirubin (0.2 - 1.3 mg/dL) Pending 0.5 AST (17 - 59 U/L) Pending 29 ALT (21 - 72 U/L) Pending 37 Troponin I Pending Albumin (3.5 - 5.0 g/dL) Pending 3.0 L Hematology CBC w Diff Pending WBC Pending RBC Pending Hgb Pending Hct Pending MCV Pending MCH Pending RDW Pending Plt Count Pending MPV Pending PUBS MCHC Pending Miscellaneous Phlebotomy Draw Site RIGHT RADIAL 01/138 1840 1815 Blood Gas Bicarbonate Actual (22 - 26 MEQ/L) 12.3 L Mixed VBG pH (7.31 - 7.41 PH) 7.18 L Mixed VBG pCO2 (41 - 51 TORR) 34 L Mixed VBG O2 Saturation (35 - 45 TORR) 44 P-50 (Temp Corrected) Pending Carboxyhemoglobin (1.5 - 5.0 %) 1.0 L O2 Concentration % RA O2 Delivery Method RA Chemistry Sodium (137 - 145 mmol/L) 134 L Potassium (3.5 - 5.1 mmol/L) 4.5 Chloride (98 - 107 mmol/L) 102 Carbon Dioxide (22 - 30 mmol/L) 12 L Anion Gap (5 - 16) 20 H BUN (9 - 20 mg/dL) 26 H Creatinine (0.7 - 1.2 mg/dL) 1.2 Estimated GFR (>60 ml/min) > 60 Glucose (65 - 99 mg/dL) 338 H Calcium (8.4 - 10.2 mg/dL) 8.0 L Phosphorus (2.5 - 4.5 mg/dL) 5.0 H Magnesium (1.6 - 2.3 mg/dL) 2.0 Total Bilirubin (0.2 - 1.3 mg/dL) 0.7 AST (17 - 59 U/L) 36 ALT (21 - 72 U/L) 36 Albumin (3.5 - 5.0 g/dL) 3.6 TSH (0.270 - 4.200 uIU/mL) 0.760 Free T4 (0.78 - 2.44 ng/dL) 1.04 Toxicology Urine Opiates Screen (>2000 NG/ML) < 100.00 Methadone Screen (>300 NG/ML) < 40 Barbiturate Screen (>200 NG/ML) < 60 Ur Phencyclidine Scrn (>25 NG/ML) < 6.00 Amphetamines Screen (>1000 NG/ML) < 100 U Benzodiazepines Scrn (>200 NG/ML) < 85 Urine Cocaine Screen (>300 NG/ML) < 50 Urine Cannabis Screen (>50 NG/ML) < 5.00 Urines Urine Color (YEL,AMB,STR) YEL Urine Clarity (CLEAR) CLEAR Urine pH (5.0 - 8.0) 5.5 Ur Specific Lowry (1.001 - 1.035) 1.020 Urine Protein (NEG,<30 MG/DL) NEG Urine Ketones (NEG) >=80 Urine Nitrite (NEG) NEG Urine Bilirubin (NEG) NEG Urine Urobilinogen (0.1 - 1.0 EU/dl) 0.2 Ur Leukocyte Esterase (NEG) NEG Ur Microscopic EXAM NOT REQUIRED Urine Hemoglobin (NEG) NEG Urine Glucose (N MG/DL) >=1000 H 01/13 1754 Chemistry Sodium (137 - 145 mmol/L) 128 L Potassium (3.5 - 5.1 mmol/L) 6.2 *H Chloride (98 - 107 mmol/L) 89 L Carbon Dioxide (22 - 30 mmol/L) 12 L Anion Gap (5 - 16) 27 H BUN (9 - 20 mg/dL) 27 H Creatinine (0.7 - 1.2 mg/dL) 1.4 H Estimated GFR (>60 ml/min) 51 L BUN/Creatinine Ratio (7 - 25 %) 19.3 Glucose (65 - 99 mg/dL) 599 *H Hemoglobin A1c (4.2 - 5.8 %) Pending Lactic Acid (0.7 - 2.1 mmol/L) 3.6 H Calcium (8.4 - 10.2 mg/dL) 9.0 Total Bilirubin (0.2 - 1.3 mg/dL) 1.2 AST (17 - 59 U/L) 46 ALT (21 - 72 U/L) 44 Alkaline Phosphatase (< 127 U/L) 150 H Troponin I (<0.11 ng/ml) < 0.01 Total Protein (6.3 - 8.2 g/dL) 7.4 Albumin (3.5 - 5.0 g/dL) 4.3 Globulin (1.9 - 4.2 gm/dL) 3.1 Albumin/Globulin Ratio (1.1 - 2.2 %) 1.4 Hematology CBC w Diff NO MAN DIFF REQ WBC (4.8 - 10.8 /CUMM) 8.6 RBC (4.70 - 6.10 /CUMM) 4.86 Hgb (14.0 - 18.0 G/DL) 16.5 Hct (42 - 52 %) 48.9 MCV (80.0 - 94.0 FL) 100.7 H MCH (27.0 - 31.0 PG) 33.9 H RDW (11.5 - 14.5 %) 13.1 Plt Count (130 - 400 /CUMM) 194 MPV (7.4 - 10.4 FL) 8.1 Gran % (42.2 - 75.2 %) 85.4 H Lymphocytes % (20.5 - 51.1 %) 4.2 L Monocytes % (1.7 - 9.3 %) 10.3 H Eosinophils % (0 - 5 %) 0.1 Basophils % (0.0 - 2.0 %) 0 L Absolute Granulocytes (1.4 - 6.5 /CUMM) 7.3 H Absolute Lymphocytes (1.2 - 3.4 /CUMM) 0.4 L Absolute Monocytes (0.10 - 0.60 /CUMM) 0.9 H Absolute Eosinophils (0.0 - 0.7 /CUMM) 0 Absolute Basophils (0.0 - 0.2 /CUMM) 0 PUBS MCHC (33.0 - 37.0 G/DL) 33.7 Toxicology Serum Alcohol (<10 MG/DL) < 10.0 Acetone Level (NEGATIVE) POSITIVE AT 1:32 DIL Assessment/Plan Assessment/Plan This patient with a known history of diabetes mellitus type 1 and autoimmune thyroid disease presented with diabetic ketoacidosis secondary to discontinuing most of his insulin and also an intercurrent illness with a cough. His condition is improved this morning after being treated with an insulin drip and IV fluids and electrolyte replacement overnight. Suggest that today we can switch the patient to subcutaneous insulin today. We would begin Levemir 10 units twice a day first dose to be given now. We also need to begin sliding scale NovoLog before meals. Sliding-scale NovoLog before meals should be 80-150 give 4 units NovoLog, 151-200 give 5 units NovoLog, 201- 250 give 6 units NovoLog, 251-300 give 7 units NovoLog, 301-350 give 8 units NovoLog, 351-400 give 9 units NovoLog. The first dose of NovoLog should be given before the patient's breakfast this morning. One hour after the first dose of NovoLog and Levemir is on board we can discontinue the insulin drip. We should repeat the patient's lab work including CBC and BMP this afternoon. A separate bedtime sliding-scale NovoLog should be written. Sliding-scale NovoLog at bedtime should be less than 250 give no insulin, 251-300 give 2 units NovoLog, 301-350 give 3 units NovoLog, 351-400 give 4 units NovoLog. The patient's thyroid tests are in a good range and we should continue thyroid hormone. Consult Acknowledgment - Thank you for your consult request.
[2017-01-14 08:00] VITALS: BP 120/54
[2017-01-14 08:11] LABS: ABSOLUTE BASOPHIL COUNT 0 /CUMM (0.0-0.2); ABSOLUTE EOSINOPHIL COUNT 0 /CUMM (0.0-0.7); ABSOLUTE MONOCYTE COUNT 0.8 /CUMM (0.10-0.60); EOSINOPHIL % 0.1 % (0-5); MEAN PLATELET VOLUME 7.8 FL (7.4-10.4); RED BLOOD CELL CT 3.93 /CUMM (4.70-6.10)
[2017-01-14 08:26] LABS: ABSOLUTE GRANULOCYTE CT 3.4 /CUMM (1.4-6.5); ABSOLUTE LYMPH COUNT 0.9 /CUMM (1.2-3.4); BASOPHIL % 0.4 % (0.0-2.0); GRANULOCYTE % 67.3 % (42.2-75.2); MEAN CORPUSCULAR HGB 33.9 PG (27.0-31.0); MEAN CORPUSCULAR HGB CONC 33.8 G/DL (33.0-37.0); MEAN CORPUSCULAR VOLUME 100.5 FL (80.0-94.0); PLATELET COUNT 188 /CUMM (130-400); RBC DISTRIBUTION WIDTH 13.4 % (11.5-14.5); WHITE BLOOD CELL COUNT 5.1 /CUMM (4.8-10.8)
[2017-01-14 08:40] LABS: HEMATOCRIT 39.5 % (42-52)
--- NOTE | 2017-01-14 10:10 | Cons- CRCU ---
General Information and HPI Consulting Request Date of Consult: 01/14/17 Requested By: med team History of Present Illness: This 66-year-old male has a long-standing history of type 1 diabetes mellitus and hypothyroidism.. Apparently he is on 20 units of Lantus daily plus a Humalog before meals. He has not seen his curriculum and assessment coordinator for about 6 months according to the record. Patient was having low sugar reactions and began to taper his insulin. Apparently he has not taken his Lantus for at least a few days prior to admission. He also had an intercurrent flulike illness with a cough. Eventually he presented to the emergency room with evidence of diabetic ketoacidosis. The patient sugar was 599 with a creatinine of 1.4 sodium 128 potassium 6.2 chloride 89 CO2 12 acetone +1-32 lactic acid +3.6 and anion gap of 27. The patient has been treated with an insulin drip. He is also on D5 half-normal saline with 20 mEq KCl. His most recent labs show improvement with the one B1 26 sodium 135 potassium 4.7 CO2 was 19 and anion gap is 9. Of note he follows Dr Husam Wharton at [facility] as his curriculum and assessment coordinator and last he saw Dr. wharton was 6 months ago. After this 5 months ago, he started to have frequent episodes of hypoglycemia into 40s and 50s for which he had a couple of ER visits , he himself thought that this was secondary to reaction to Lantus he stopped taking his Lantus which normally he used to take 20 units subcutaneous daily at bedtime by himself and has not been taking any Lantus for last 4-5 months. His daughter lives nearby and visits him on and off. 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 He is independent with all activities of daily living On questioning this morning the patient will not tell me whether he truly feels better. He did eat his breakfast Review of Systems Constitutional: Reports: chills, fever, malaise, weakness. Denies: diaphoresis. EENTM: Reports: nasal congestion. Denies: blurred vision, double vision, visual changes, eye pain, eye drainage, eye tearing. Cardiovascular: Denies: chest pain, edema, orthopena, palpitations, peripheral edema, syncope. Respiratory: Reports: cough. Denies: hemoptysis, orthopnea, short of breath, sputum production, stridor, wheezing. GI: Denies: abdominal pain, bloating, constipation, diarrhea, distention, melena. Genitourinary: Reports: frequency. Denies: discharge, dysuria, hematuria. Musculoskeletal: Reports: joint pain, muscle pain. Denies: back pain, gout, joint swelling. Skin: Reports: dryness. Denies: cysts, change in skin color, change in hair/nails. Neurological/Psychological: Denies: anxiety, ataxia, cognitive dysfunction, confusion, depressed, dementia. Hematologic/Endocrine: Reports: no symptoms. Immunologic/Allergic: Reports: no symptoms. All Other Systems: Reviewed and Negative Allergies/Medications Allergies: Coded Allergies: NO KNOWN ALLERGIES (02/29/16) Home Med List: Insulin Lispro (Humalog) (Unknown Strength) VIAL (Unknown Dose) SC AC DIABETES (Reported) Insulin-Lantus (Lantus) 100 UNIT/1 ML VIAL 20 UNITS SC QHS DIABETES (Reported ) Levothyroxine Sodium 137 MCG TABLET 1 TAB PO DAILY THYROID (Reported) Pravastatin Sodium 40 MG TABLET 1 TAB PO DAILY CHOLESTEROL (Reported) Review of Systems Review of Systems Constitutional: Reports: see HPI. Past History Travel History Traveled to [place] past 21 day No Medical History Neurological: NONE EENT: NONE Cardiovascular: NONE Respiratory: NONE Gastrointestinal: NONE Hepatic: NONE Renal: NONE Musculoskeletal: NONE Psychiatric: NONE Endocrine: diabetes, hyperthyroidism Blood Disorders: NONE Cancer(s): NONE Surgical History Surgical History: non-contributory Psychosocial History Where Do You Live? Home Who Do You Live With? self Services at Home: None Primary Language: Mauritanian Smoking Status: Former Smoker (quit 45 years ago) ETOH Use: denies use Illicit Drug Use: denies illicit drug use Functional Ability ADLs Independent: dressing, eating, toileting, bathing. Ambulation: independent IADLs Independent: shopping, housework, finances, food prep, telephone, transportation , medication admin. 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 Exam & Diagnostic Data Last 24 Hrs of Vital Signs/I&O Vital Signs Date Time Temp Pulse Resp B/P Pulse O2 O2 Flow FiO2 Ox Delivery Rate 01/14 0400 95 Room Air 01/14 0151 95 Room Air 01/14 0140 95 01/14 0129 98.0 82 16 118/56 95 01/13 2329 97 Room Air 03/22 2317 98.2 87 16 112/54 98 Room Air 01/13 2211 86 16 126/65 97 Room Air 01/133 98.0 90 16 125/60 99 Room Air 01/13 2005 98 Room Air 01/13 1950 98.0 94 16 128/84 98 Room Air 01/13 1943 99 Room Air 01/13 1936 97.8 96 16 146/69 96 Room Air 01/13 1724 97.6 96 18 119/63 93 Room Air Intake & Output 01/14 1600 01/14 0800 01/14 0000 Intake Total 1025 4000 Output Total 300 850 Balance 725 3150 Intake, IV 825 4000 Intake, Oral 200 Output, Urine 300 850 Patient 195 lb 205 lb Weight Laboratory Tests 01/14 01/14 01/14 0615 0615 0540 Blood Gas pH (7.35 - 7.45 PH) 7.41 pCO2 (35 - 45 TORR) 33 L pO2 (80 - 100 TORR) 74 L HCO3 (21 - 28 MEQ/L) 20 L ABG O2 Sat (Measured) (>96.0 %) 94.0 L P-50 (Temp Corrected) Y Carboxyhemoglobin (1.5 - 5.0 %) 0.3 L O2 Concentration % RA Temperature (97.0 - 100.0 FARH) 99.1 Chemistry Sodium (137 - 145 mmol/L) 136 L Potassium (3.5 - 5.1 mmol/L) 4.3 Chloride (98 - 107 mmol/L) 108 H Carbon Dioxide (22 - 30 mmol/L) 21 L Anion Gap (5 - 16) 7 BUN (9 - 20 mg/dL) 24 H Creatinine (0.7 - 1.2 mg/dL) 0.9 Estimated GFR (>60 ml/min) > 60 Glucose (65 - 99 mg/dL) 189 H Lactic Acid (0.7 - 2.1 mmol/L) 0.9 Calcium (8.4 - 10.2 mg/dL) 8.0 L Phosphorus (2.5 - 4.5 mg/dL) 2.8 Magnesium (1.6 - 2.3 mg/dL) 2.1 Total Bilirubin (0.2 - 1.3 mg/dL) 0.4 AST (17 - 59 U/L) 28 ALT (21 - 72 U/L) 42 Troponin I (<0.11 ng/ml) < 0.01 Albumin (3.5 - 5.0 g/dL) 2.9 L Hematology CBC w Diff NO MAN DIFF REQ WBC (4.8 - 10.8 /CUMM) 5.1 RBC (4.70 - 6.10 /CUMM) 3.93 L Hgb (14.0 - 18.0 G/DL) 13.3 L Hct (42 - 52 %) 39.5 L MCV (80.0 - 94.0 FL) 100.5 H MCH (27.0 - 31.0 PG) 33.9 H RDW (11.5 - 14.5 %) 13.4 Plt Count (130 - 400 /CUMM) 188 MPV (7.4 - 10.4 FL) 7.8 Gran % (42.2 - 75.2 %) 67.3 Lymphocytes % (20.5 - 51.1 %) 16.8 L Monocytes % (1.7 - 9.3 %) 15.4 H Eosinophils % (0 - 5 %) 0.1 Basophils % (0.0 - 2.0 %) 0.4 Absolute Granulocytes (1.4 - 6.5 /CUMM) 3.4 Absolute Lymphocytes (1.2 - 3.4 /CUMM) 0.9 L Absolute Monocytes (0.10 - 0.60 /CUMM) 0.8 H Absolute Eosinophils (0.0 - 0.7 /CUMM) 0 Absolute Basophils (0.0 - 0.2 /CUMM) 0 PUBS MCHC (33.0 - 37.0 G/DL) 33.8 Miscellaneous Phlebotomy Draw Site RIGHT RADIAL 01/14 01/13 01/13 0200 2125 2125 Chemistry Sodium (137 - 145 mmol/L) 135 L 134 L Potassium (3.5 - 5.1 mmol/L) 4.7 4.5 Chloride (98 - 107 mmol/L) 108 H 102 Carbon Dioxide (22 - 30 mmol/L) 19 L 12 L Anion Gap (5 - 16) 9 20 H BUN (9 - 20 mg/dL) 26 H 26 H Creatinine (0.7 - 1.2 mg/dL) 1.0 1.2 Estimated GFR (>60 ml/min) > 60 > 60 Glucose (65 - 99 mg/dL) 241 H 338 H Lactic Acid (0.7 - 2.1 mmol/L) 2.6 H Calcium (8.4 - 10.2 mg/dL) 7.7 L 8.0 L Phosphorus (2.5 - 4.5 mg/dL) 3.3 5.0 H Magnesium (1.6 - 2.3 mg/dL) 2.1 2.0 Total Bilirubin (0.2 - 1.3 mg/dL) 0.5 0.7 AST (17 - 59 U/L) 29 36 ALT (21 - 72 U/L) 37 36 Albumin (3.5 - 5.0 g/dL) 3.0 L 3.6 TSH (0.270 - 4.200 uIU/mL) 0.760 Free T4 (0.78 - 2.44 ng/dL) 1.04 01/13 01/13 1840 1815 Blood Gas Bicarbonate Actual (22 - 26 MEQ/L) 12.3 L Mixed VBG pH (7.31 - 7.41 PH) 7.18 L Mixed VBG pCO2 (41 - 51 TORR) 34 L Mixed VBG O2 Saturation (35 - 45 TORR) 44 P-50 (Temp Corrected) Pending Carboxyhemoglobin (1.5 - 5.0 %) 1.0 L O2 Concentration % RA O2 Delivery Method RA Toxicology Urine Opiates Screen (>2000 NG/ML) < 100.00 Methadone Screen (>300 NG/ML) < 40 Barbiturate Screen (>200 NG/ML) < 60 Ur Phencyclidine Scrn (>25 NG/ML) < 6.00 Amphetamines Screen (>1000 NG/ML) < 100 U Benzodiazepines Scrn (>200 NG/ML) < 85 Urine Cocaine Screen (>300 NG/ML) < 50 Urine Cannabis Screen (>50 NG/ML) < 5.00 Urines Urine Color (YEL,AMB,STR) YEL Urine Clarity (CLEAR) CLEAR Urine pH (5.0 - 8.0) 5.5 Ur Specific Irving (1.001 - 1.035) 1.020 Urine Protein (NEG,<30 MG/DL) NEG Urine Ketones (NEG) >=80 Urine Nitrite (NEG) NEG Urine Bilirubin (NEG) NEG Urine Urobilinogen (0.1 - 1.0 EU/dl) 0.2 Ur Leukocyte Esterase (NEG) NEG Ur Microscopic EXAM NOT REQUIRED Urine Hemoglobin (NEG) NEG Urine Glucose (N MG/DL) >=1000 H 01/13 1754 Chemistry Sodium (137 - 145 mmol/L) 128 L Potassium (3.5 - 5.1 mmol/L) 6.2 *H Chloride (98 - 107 mmol/L) 89 L Carbon Dioxide (22 - 30 mmol/L) 12 L Anion Gap (5 - 16) 27 H BUN (9 - 20 mg/dL) 27 H Creatinine (0.7 - 1.2 mg/dL) 1.4 H Estimated GFR (>60 ml/min) 51 L BUN/Creatinine Ratio (7 - 25 %) 19.3 Glucose (65 - 99 mg/dL) 599 *H Hemoglobin A1c (4.2 - 5.8 %) 6.6 H Lactic Acid (0.7 - 2.1 mmol/L) 3.6 H Calcium (8.4 - 10.2 mg/dL) 9.0 Total Bilirubin (0.2 - 1.3 mg/dL) 1.2 AST (17 - 59 U/L) 46 ALT (21 - 72 U/L) 44 Alkaline Phosphatase (< 127 U/L) 150 H Troponin I (<0.11 ng/ml) < 0.01 Total Protein (6.3 - 8.2 g/dL) 7.4 Albumin (3.5 - 5.0 g/dL) 4.3 Globulin (1.9 - 4.2 gm/dL) 3.1 Albumin/Globulin Ratio (1.1 - 2.2 %) 1.4 Hematology CBC w Diff NO MAN DIFF REQ WBC (4.8 - 10.8 /CUMM) 8.6 RBC (4.70 - 6.10 /CUMM) 4.86 Hgb (14.0 - 18.0 G/DL) 16.5 Hct (42 - 52 %) 48.9 MCV (80.0 - 94.0 FL) 100.7 H MCH (27.0 - 31.0 PG) 33.9 H RDW (11.5 - 14.5 %) 13.1 Plt Count (130 - 400 /CUMM) 194 MPV (7.4 - 10.4 FL) 8.1 Gran % (42.2 - 75.2 %) 85.4 H Lymphocytes % (20.5 - 51.1 %) 4.2 L Monocytes % (1.7 - 9.3 %) 10.3 H Eosinophils % (0 - 5 %) 0.1 Basophils % (0.0 - 2.0 %) 0 L Absolute Granulocytes (1.4 - 6.5 /CUMM) 7.3 H Absolute Lymphocytes (1.2 - 3.4 /CUMM) 0.4 L Absolute Monocytes (0.10 - 0.60 /CUMM) 0.9 H Absolute Eosinophils (0.0 - 0.7 /CUMM) 0 Absolute Basophils (0.0 - 0.2 /CUMM) 0 PUBS MCHC (33.0 - 37.0 G/DL) 33.7 Toxicology Serum Alcohol (<10 MG/DL) < 10.0 Acetone Level (NEGATIVE) POSITIVE AT 1:32 DIL Microbiology Date/Time Procedure - Status Source Growth 01/14 115 Surveillance Culture - RECD UPPER RESP Last 48 Hrs of Labs/Sean: Laboratory Tests 01/14/17 0615: Lactic Acid 0.9 01/14/17 0615: Anion Gap 7, Estimated GFR > 60, Glucose 189 H, Calcium 8.0 L, Phosphorus 2.8, Magnesium 2.1, Total Bilirubin 0.4, AST 28, ALT 42, Troponin I < 0.01, Albumin 2.9 L, CBC w Diff NO MAN DIFF REQ, RBC 3.93 L, MCV 100.5 H, MCH 33.9 H, RDW 13.4, MPV 7.8, Gran % 67.3, Lymphocytes % 16.8 L, Monocytes % 15.4 H, Eosinophils % 0.1, Basophils % 0.4, Absolute Granulocytes 3.4, Absolute Lymphocytes 0.9 L, Absolute Monocytes 0.8 H, Absolute Eosinophils 0, Absolute Basophils 0, PUBS MCHC 33.8 01/14/17 0540: pH 7.41, pCO2 33 L, pO2 74 L, HCO3 20 L, ABG O2 Sat (Measured) 94.0 L, P-50 (Temp Corrected) Y, Carboxyhemoglobin 0.3 L, O2 Concentration % RA, Temperature 99.1, Phlebotomy Draw Site RIGHT RADIAL 01/14/17 0200: Anion Gap 9, Estimated GFR > 60, Glucose 241 H, Calcium 7.7 L, Phosphorus 3.3, Magnesium 2.1, Total Bilirubin 0.5, AST 29, ALT 37, Albumin 3.0 L 01/13/172124: Lactic Acid 2.6 H 01/13/172124: Anion Gap 20 H, Estimated GFR > 60, Glucose 338 H, Calcium 8.0 L, Phosphorus 5.0 H, Magnesium 2.0, Total Bilirubin 0.7, AST 36, ALT 36, Albumin 3.6, TSH 0.760, Free T4 1.04 01/13/17 1840: Urine Opiates Screen < 100.00, Methadone Screen < 40, Barbiturate Screen < 60, Ur Phencyclidine Scrn < 6.00, Amphetamines Screen < 100, U Benzodiazepines Scrn < 85, Urine Cocaine Screen < 50, Urine Cannabis Screen < 5.00, Urine Color YEL, Urine Clarity CLEAR, Urine pH 5.5, Ur Specific Irving 1.020, Urine Protein NEG, Urine Ketones >=80, Urine Nitrite NEG, Urine Bilirubin NEG, Urine Urobilinogen 0.2, Ur Leukocyte Esterase NEG, Ur Microscopic EXAM NOT REQUIRED, Urine Hemoglobin NEG, Urine Glucose >=1000 H 01/13/171814: Bicarbonate Actual 12.3 L, Mixed VBG pH 7.18 L, Mixed VBG pCO2 34 L, Mixed VBG O2 Saturation 44, P-50 (Temp Corrected) Pending, Carboxyhemoglobin 1.0 L, O2 Concentration % RA, O2 Delivery Method RA 01/13/17 1754: Anion Gap 27 H, Estimated GFR 51 L, BUN/Creatinine Ratio 19.3, Glucose 599 *H, Hemoglobin A1c 6.6 H, Lactic Acid 3.6 H, Calcium 9.0, Total Bilirubin 1.2, AST 46, ALT 44, Alkaline Phosphatase 150 H, Troponin I < 0.01, Total Protein 7.4, Albumin 4.3, Globulin 3.1, Albumin/Globulin Ratio 1.4, CBC w Diff NO MAN DIFF REQ, RBC 4.86, MCV 100.7 H, MCH 33.9 H, RDW 13.1, MPV 8.1, Gran % 85.4 H, Lymphocytes % 4.2 L, Monocytes % 10.3 H, Eosinophils % 0.1, Basophils % 0 L, Absolute Granulocytes 7.3 H, Absolute Lymphocytes 0.4 L, Absolute Monocytes 0.9 H, Absolute Eosinophils 0, Absolute Basophils 0, PUBS MCHC 33.7, Serum Alcohol < 10.0, Acetone Level POSITIVE AT 1:32 DIL Assessment/Plan Impression/Plan: Physical Exam General Appearance Alert, Oriented X3, Cooperative, irritable Skin No Rashes, No Breakdown HEENT Atraumatic, PERRLA, EOMI Neck Supple, No JVD Lymphatic no lad Cardiovascular Regular Rate, Normal S1, Normal S2, No Murmurs Lungs Clear to Auscultation, Normal Air Movement Abdomen Normal Bowel Sounds, Soft, No Tenderness Neurological Normal Speech, Strength at 5/5 X4 Ext, Normal Tone, Sensation Intact, Cranial Nerves 3-12 NL, Reflexes 2+ Extremities No Clubbing, No Cyanosis, No Edema, Normal Pulses Vascular Normal Pulses IMPRESSION In summary this is a 66-year-old, previous smoker (45 years ago), nonalcoholic, no other illicit drug abuse male living by himself with past medical history of type 1 diabetes mellitus on insulin, hypothyroidism on levothyroxine, hyperlipidemia on statin came in with chief complain of lethargy and weakness along with hyperglycemia, with flulike symptoms including lethargy, weakness, body ache, postnasal dripping one week prior to admission, which had been improving, however had worsening hyperglycemia after being noncompliant with his diabetic medications, self stopped the Lantus 5 months prior to this admission and did not take his Humalog since last 48 hours due to losing his diabetic supplies Issues DKA- IMproving now with IVF and Insulin SIg AG acidosis due to dka with lactic acidosis aswell prob due to dehydration Vomiting prob related to acidosis now marilyn po food Hyperkalemia now better KIM stable and resolved Hypothyroid on ash supp REC COnt ivf for now with insulin per endo SLiding scale ok to eat Follow electrolytes OOB to chair Increase activity PT critically ill initially tts 26 mins WHen stable can go to the floor this pm or in am Consult Acknowledgment - Thank you for your consult request.
[2017-01-14 12:13] LABS: ABSOLUTE BASOPHIL COUNT 0 /CUMM (0.0-0.2); ABSOLUTE EOSINOPHIL COUNT 0 /CUMM (0.0-0.7); ABSOLUTE GRANULOCYTE CT 3.5 /CUMM (1.4-6.5); ABSOLUTE LYMPH COUNT 0.6 /CUMM (1.2-3.4); ABSOLUTE MONOCYTE COUNT 0.6 /CUMM (0.10-0.60); BASOPHIL % 0.2 % (0.0-2.0); EOSINOPHIL % 0.2 % (0-5); HEMATOCRIT 40.8 % (42-52); MEAN CORPUSCULAR HGB 33.8 PG (27.0-31.0); MEAN CORPUSCULAR HGB CONC 33.6 G/DL (33.0-37.0); MEAN CORPUSCULAR VOLUME 100.8 FL (80.0-94.0); MEAN PLATELET VOLUME 7.8 FL (7.4-10.4); PLATELET COUNT 162 /CUMM (130-400); RBC DISTRIBUTION WIDTH 13.6 % (11.5-14.5); RED BLOOD CELL CT 4.04 /CUMM (4.70-6.10); WHITE BLOOD CELL COUNT 4.8 /CUMM (4.8-10.8)
--- NOTE | 2017-01-14 15:56 | NUR ---
PT TRANSFERED TO 2NB ROOM 201. REPORT GIVEN TO FANTASMA HARTMANN. LAST BLOOD SUGAR 199. WILL MONITOR.
[2017-01-14 16:15] VITALS: BP 91/58
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
--- NOTE | 2017-01-14 19:20 | NUR ---
PATIENT ARRIVED TO FLOOR FROM ICU AT 1600 VS 98.6 78 18 91/58 94% ROOM AIR A&O, LCTA, SKIN INTACT, INDEPENDENT. BLOOD SUGAR 146, 4 UNITS INSULIN GIVEN, DINNER TRAY IN FRONT OF PATIENT 2 IVS-#20 LAC, AND #24 LH, BOTH HEP LOCKED. SPOKE WITH DAUGHTER, EXPRESSED CONCERN ABOUT WHAT BROUGHT FATHER HERE, STATES SHE CANNOT TAKE CARE OF HIM, THIS RN REQUESTED SW/CM CONSULT.
[2017-01-14 22:15] VITALS: BP 120/56
[2017-01-15 06:47] LABS: ABSOLUTE BASOPHIL COUNT 0 /CUMM (0.0-0.2); ABSOLUTE EOSINOPHIL COUNT 0 /CUMM (0.0-0.7); ABSOLUTE GRANULOCYTE CT 2.1 /CUMM (1.4-6.5); ABSOLUTE LYMPH COUNT 0.6 /CUMM (1.2-3.4); ABSOLUTE MONOCYTE COUNT 0.4 /CUMM (0.10-0.60); BASOPHIL % 0.6 % (0.0-2.0); EOSINOPHIL % 0.5 % (0-5); GRANULOCYTE % 67.1 % (42.2-75.2); HEMATOCRIT 41.2 % (42-52); MEAN CORPUSCULAR VOLUME 99.9 FL (80.0-94.0); MEAN PLATELET VOLUME 7.8 FL (7.4-10.4); PLATELET COUNT 144 /CUMM (130-400); RBC DISTRIBUTION WIDTH 13.2 % (11.5-14.5); RED BLOOD CELL CT 4.12 /CUMM (4.70-6.10); WHITE BLOOD CELL COUNT 3.1 /CUMM (4.8-10.8)
[2017-01-15 06:48] VITALS: BP 112/63
--- NOTE | 2017-01-15 07:20 | PN- Housestaff ---
ENEDELIA JOHNSON,[facility] 01/15/17 0719: Subjective Follow-up For: Diabetic ketoacidosis Subjective: Patient was seen and examined this morning, he denied abdominal pain, nausea, vomiting, dysuria or polyuria. Patient denied chest pain, palpitation. Patient was able to tolerate oral intake well. Vital signs are stable, temperature 99.2, his blood sugar this morning 251 Patient reported taking high dose of insulin NovoLog sliding scale than what he is getting here in the hospital, he thinks his blood sugar should be around 100, he denied using long acting insulin at home. I discussed in length with the patient his insulin regimen, blood sugar was measured frequently to adjust his blood sugar, patient reported that he self adjust his blood sugar at home, and he used to take high doses of insulin to bring his sugar to a good number which is supposed to be around 100 Review of Systems Constitutional: Reports: see HPI. Objective Last 24 Hrs of Vital Signs/I&O Vital Signs Date Time Temp Pulse Resp B/P Pulse O2 O2 Flow FiO2 Ox Delivery Rate 01/15 1404 99.2 82 18 118/64 96 Room Air 01/15 1200 99.2 64 22 140/70 96 01/15 0648 98.3 74 18 112/63 96 Room Air 01/15 0034 100.5 01/14 2215 99.6 79 19 120/56 92 Room Air 01/14 1615 98.6 78 18 91/58 94 Room Air Intake & Output 01/15 1600 01/15 0800 01/15 0000 Intake Total 120 600 Output Total Balance 120 600 Intake, Oral 120 600 Patient 88.451 kg Weight Physical Exam General Appearance: Alert, Oriented X3, Cooperative, No Acute Distress Skin: No Rashes, No Breakdown, No Significant Lesion HEENT: Atraumatic, PERRLA, EOMI, Mucous Membr. moist/pink Neck: Supple, No JVD Cardiovascular: Regular Rate, Normal S1, Normal S2, No Murmurs Lungs: Clear to Auscultation, Normal Air Movement Abdomen: Normal Bowel Sounds, Soft, No Tenderness Neurological: Normal Gait, Normal Speech, Strength at 5/5 X4 Ext, Normal Tone, Sensation Intact, Cranial Nerves 3-12 NL, Reflexes 2+ Extremities: No Clubbing, No Cyanosis, No Edema, Normal Pulses Assessment/Plan Assessment: Mr. Karft is 66 year old male former smoker with past medical history of type 1 diabetes mellitus on insulin, hypothyroidism on levothyroxine, hyperlipidemia on statin came in with chief complain of weakness and fatigue associated with flulike symptoms, hyperglycemia. Daughter concerned that it is unlike him to not take his insulin and that he might have done it to seek attention (pt has been asking her to see him but she refuses because she thinks he has the flu). Pt been diagnosed with manic depressive but refused meds. Patient was initially admitted to ICU for 24 upper for diabetic ketoacidosis, he was transferred later to general med floor after improvement of his medical condition. Problem list # Type 1 diabetes mellitus with diabetic ketoacidosis -On admission, anion gap metabolic acidosis with anion gap of 27, blood sugar of 599. Patient was maintained on insulin drip, anion gap was resolved -Electrolytes improved -Endocrine consultation was obtained, thanks for recommendation -Patient was started on NovoLog sliding scale before meals and levemir 10 units twice a day , he had fasting sugar of 250, patient received 6 units before breakfast, 2 hours later his blood sugar was 377, patient received 6 units of regular insulin, 2 hours later blood sugar was 281, patient received 9 units before lunch, 2 hours later blood sugar 209 -I contacted Dr. Shepherd and updated him for blood sugar reading, an adjustment of the sliding scale was made, we increased the sliding scale by 2 units per each interval -I spoke with his director of teaching and learning Dr. Husam Scott at [facility], she reported that the patient declined using long acting insulin, and he used to self adjust his insulin. Patient last hemoglobin A1c was 6.8, currently 6.6. Patient attributed well controlled hemoglobin A1c because he used to dose insulin and keep his sugar around 100 # Acute kideny injury -BUN and creatinine noted to be 27/1.4 most likely secondary to dehydration -Resolved # Hypothyroidism. - TSH 0.76 and free T4 1.04 -Continue levothyroxine at 137 mcg daily. #Hyperlipidemia -Continue pravastatin 40 mg daily #Psychiatric -Patient's daughter reported that she thinks her father stop take his insulin for the last 3 days prior to admission on purpose as she withdrawn visiting him because of the flu symptoms -Psych evaluation was obtained, thanks for the evaluation CC2 nutrition evaluation was obtained, suggestion to continue with current diet DVt Px : alps and heparin Code full Consultation endocrinology, psychiatric, nutrition Problem List: 1. Hypothyroidism 2. Hyperlipidemia 3. DKA (diabetic ketoacidoses) Pain Ratin Pain Location: None Pain Goal: Pain 4 or less Pain Plan: Mild pain pathway Tomorrow's Labs & Rationales: None LIS JOHNSON,JESSICA 01/15/17 1159: Attending MD Review Statement Attending Statement Attending MD Statement: examined this patient, discuss w/resident/PA/APARTMENT MAINTENANCE MANAGER, agreed w/resident/PA/APARTMENT MAINTENANCE MANAGER, reviewed EMR data (avail), discussed with nursing, discussed with case mgmt, reviewed images Attending Assessment/Plan: Patient is upset about his insulin regimen. I tried explaining to him at length the following endocrinology's recommendations and that he is a brittle diabetic given his tight control outside as evidenced by hemoglobin A1c of 6.6 but then his sugars that have been high here. We are titrating his regimen per endocrinology. His flu swab was sent and is pending. I'm worried given his achy symptoms and his MAXIMUM TEMPERATURE of 100.5 overall. And will follow closely.
--- NOTE | 2017-01-15 08:04 | PN- Diabetes ---
Assessment/Plan Assessment: Age and feels improved. He is eating well. The labs show that his ketoacidosis has resolved. However his white blood count is down to 3.1 this morning perhaps due to weather viral illness. In talking with the patient he had discontinued his Lantus for a few days prior to admission. He was just using Humalog and then could not find his insulin at home. He states it had slipped between the mattress and his headboard and he did not know where it was. Therefore he went without any insulin at all for a few days and finally presented with ketoacidosis. Patient may also have had an intercurrent viral illness. His hemoglobin A1c done at the time of admission is 6.6% Plan: The patient's fingerstick blood sugar before breakfast today is 250. His currently on Levemir 10 units twice a day as well as sliding scale NovoLog. Would continue the present insulin for now. Because we're not sure of his insulin requirements, it would be good if the patient could stay in the hospital one more day while we observe his sugar readings on his current regimen. The patient is anxious to get home because he has 2 cats. Perhaps his daughter could feed the cats and we could have him stay in the hospital one more day. Subjective Subjective: Feels okay Review of Systems Constitutional: Denies: chills, fever. Cardiovascular: Denies: chest pain. Respiratory: Reports: cough. Gastrointestinal: Denies: abdominal pain, nausea, vomiting. Genitourinary: Denies: dysuria. Musculoskeletal: Denies: back pain. Objective Last 24 Hrs of Vital Signs/I&O Vital Signs Date Time Temp Pulse Resp B/P Pulse O2 O2 Flow FiO2 Ox Delivery Rate 01/15 0648 98.3 74 18 112/63 96 Room Air 01/15 0034 100.5 01/14 2215 99.6 79 19 120/56 92 Room Air 01/14 1615 98.6 78 18 91/58 94 Room Air Intake & Output 01/15 1600 01/15 0800 01/15 0000 Intake Total 120 600 Output Total Balance 120 600 Intake, Oral 120 600 Vital Signs Date Time Temp Pulse Resp B/P Pulse O2 O2 Flow FiO2 Ox Delivery Rate 01/15 0648 98.3 74 18 112/63 96 Room Air 01/15 0034 100.5 01/14 2215 99.6 79 19 120/56 92 Room Air 01/14 1615 98.6 78 18 91/58 94 Room Air Intake & Output 01/15 1600 01/15 0800 01/15 0000 Intake Total 120 600 Output Total Balance 120 600 Intake, Oral 120 600 Physical Exam General Appearance: alert, awake, anxious Head: normal appearance Neck: normal inspection Respiratory: normal breath sounds Cardiovascular: regular rate/rhythm Extremities: normal inspection Current Medications: Current Medications Sig/Pollo Start time Last Medication Dose Route Stop Time Status Admin Acetaminophen 650 MG Q6P PRN 01/13 2115 AC 01/15 PO 0039 Heparin Sodium 5,000 UNIT Q8 01/13 2200 AC 01/14 (Porcine) SC 1432 Insulin Aspart 0 AT BEDTIME 01/14 220 AC SC Insulin Aspart 0 TIDAC 01/14 0800 AC 01/14 SC 1621 Insulin Detemir 10 UNITS BID 01/14 0745 AC 01/14 SC 2035 Insulin Human Regular 100 UNIT Q24H 01/13 2200 DC 01/13 Sodium Chloride 100 ML IV 2148 Levothyroxine Sodium 0.137 MG DAILY AC 01/14 0700 AC 01/15 PO 0636 Metoclopramide HCl 10 MG Q6P PRN 01/13 2115 AC IV Oxycodone HCl 5 MG Q6P PRN 01/13 2115 AC PO Potassium Chloride 20 MEQ Q8H 01/14 0045 DC 01/14 Dextrose/Sodium 1,000 ML IV 0729 Chloride Pravastatin Sodium 40 MG 1700 01/14 1700 AC 01/14 PO 1827 Pravastatin Sodium 40 MG DAILY 01/14 1000 DC PO Findings Pertinent Lab/Sean Results: Laboratory Tests 01/15 01/14 061999 Chemistry Sodium (137 - 145 mmol/L) 133 L 133 L Potassium (3.5 - 5.1 mmol/L) 4.7 4.4 Chloride (98 - 107 mmol/L) 104 103 Carbon Dioxide (22 - 30 mmol/L) 23 23 Anion Gap (5 - 16) 7 7 BUN (9 - 20 mg/dL) 20 24 H Creatinine (0.7 - 1.2 mg/dL) 0.9 1.0 Estimated GFR (>60 ml/min) > 60 > 60 BUN/Creatinine Ratio (7 - 25 %) 22.2 Glucose (65 - 99 mg/dL) 112 H Calcium (8.4 - 10.2 mg/dL) 8.4 Phosphorus (2.5 - 4.5 mg/dL) 2.8 2.0 L Magnesium (1.6 - 2.3 mg/dL) 1.7 1.9 Total Bilirubin (0.2 - 1.3 mg/dL) 0.6 AST (17 - 59 U/L) 43 ALT (21 - 72 U/L) 43 Albumin (3.5 - 5.0 g/dL) 3.2 L Hematology CBC w Diff NO MAN DIFF REQ WBC (4.8 - 10.8 /CUMM) 3.1 L RBC (4.70 - 6.10 /CUMM) 4.12 L Hgb (14.0 - 18.0 G/DL) 14.0 Hct (42 - 52 %) 41.2 L MCV (80.0 - 94.0 FL) 99.9 H MCH (27.0 - 31.0 PG) 34.0 H RDW (11.5 - 14.5 %) 13.2 Plt Count (130 - 400 /CUMM) 144 MPV (7.4 - 10.4 FL) 7.8 Gran % (42.2 - 75.2 %) 67.1 Lymphocytes % (20.5 - 51.1 %) 19.9 L Monocytes % (1.7 - 9.3 %) 11.9 H Eosinophils % (0 - 5 %) 0.5 Basophils % (0.0 - 2.0 %) 0.6 Absolute Granulocytes (1.4 - 6.5 /CUMM) 2.1 Absolute Lymphocytes (1.2 - 3.4 /CUMM) 0.6 L Absolute Monocytes (0.10 - 0.60 /CUMM) 0.4 Absolute Eosinophils (0.0 - 0.7 /CUMM) 0 Absolute Basophils (0.0 - 0.2 /CUMM) 0 PUBS MCHC (33.0 - 37.0 G/DL) 34.0 01/14 1140 Chemistry Sodium (137 - 145 mmol/L) 133 L Potassium (3.5 - 5.1 mmol/L) 4.7 Chloride (98 - 107 mmol/L) 104 Carbon Dioxide (22 - 30 mmol/L) 20 L Anion Gap (5 - 16) 9 BUN (9 - 20 mg/dL) 24 H Creatinine (0.7 - 1.2 mg/dL) 0.9 Estimated GFR (>60 ml/min) > 60 Glucose (65 - 99 mg/dL) 357 H Calcium (8.4 - 10.2 mg/dL) 7.9 L Phosphorus (2.5 - 4.5 mg/dL) 2.3 L Magnesium (1.6 - 2.3 mg/dL) 2.0 Total Bilirubin (0.2 - 1.3 mg/dL) 0.4 AST (17 - 59 U/L) 30 ALT (21 - 72 U/L) 39 Albumin (3.5 - 5.0 g/dL) 2.9 L Hematology CBC w Diff NO MAN DIFF REQ WBC (4.8 - 10.8 /CUMM) 4.8 RBC (4.70 - 6.10 /CUMM) 4.04 L Hgb (14.0 - 18.0 G/DL) 13.7 L Hct (42 - 52 %) 40.8 L MCV (80.0 - 94.0 FL) 100.8 H MCH (27.0 - 31.0 PG) 33.8 H RDW (11.5 - 14.5 %) 13.6 Plt Count (130 - 400 /CUMM) 162 MPV (7.4 - 10.4 FL) 7.8 Gran % (42.2 - 75.2 %) 74.0 Lymphocytes % (20.5 - 51.1 %) 12.9 L Monocytes % (1.7 - 9.3 %) 12.7 H Eosinophils % (0 - 5 %) 0.2 Basophils % (0.0 - 2.0 %) 0.2 Absolute Granulocytes (1.4 - 6.5 /CUMM) 3.5 Absolute Lymphocytes (1.2 - 3.4 /CUMM) 0.6 L Absolute Monocytes (0.10 - 0.60 /CUMM) 0.6 Absolute Eosinophils (0.0 - 0.7 /CUMM) 0 Absolute Basophils (0.0 - 0.2 /CUMM) 0 PUBS MCHC (33.0 - 37.0 G/DL) 33.6
[2017-01-15 12:00] VITALS: BP 140/70
[2017-01-15 14:04] VITALS: BP 118/64
--- NOTE | 2017-01-15 17:27 | Discharge Summary ---
Visit Information Visit Dates Admission Date: 01/13/17 Discharge Date: 01/16/17 Hospital Course Course Attending Physician: AYAZ NINO MD Primary Care Physician: UNKNOWN Hospital Course: Mr. Kraft is 66 year old male former smoker with past medical history of type 1 diabetes mellitus on insulin, hypothyroidism on levothyroxine, hyperlipidemia on statin presented to ED with chief complain of flulike symptoms (mostly viral) associated with weakness, fatigue and hyperglycemia after he missed his insulin for couple of days prior to admission (lost his diabetic supplies bag behind the bed). Patient was initially admitted to ICU for 24 hours for diabetic ketoacidosis ( blood sugar 599, potassium 6.2, anion gap 27), he was transferred later to general med floor after improvement of his medical condition. Problem list # Type 1 diabetes mellitus with diabetic ketoacidosis -On admission, anion gap metabolic acidosis with anion gap of 27, blood sugar of 599. Patient was maintained on insulin drip, DKA resolved -Electrolytes improved -Endocrine consultation was obtained, thanks for recommendation -Patient was started on NovoLog sliding scale before meals and levemir 10 units twice a day, his blood glucose level was fluctuating, adjustment of NovoLog sliding scale was made. We contacted his steam and power superintendent Dr. Husam Scott at [place] [facility] who reported that the patient declined using long acting insulin, and he used to self adjust his insulin -Hemoglobin A1c 6.6 -Patient was instructed to follow his inpatient insulin regimen on discharge: * Levemir 10 units SQ BID * Sliding scale Novolog TIDAC: for glucose 80-150 mg/dl give 6 units, 151-200 give 7 units, 201-250 give 8 units, 251-300 give 9 units, 301-350 give 10 units, 351-400 give 11 units and >400 give 12 units * Bedtime sliding scale: for glucose 80-250 mg/dl give no insulin, 251-300 give 2 units, 301-350 give 3 units, 351-400 give 4 units and >400 give 5 units. -Patient was instructed to follow up with his steam and power superintendent Dr. Marie within one week of discharge who can make further adjustments to his insulin regimen -Patient was given referral for PCP Dr. Sandoval with instructions to follow up with her within one week of discharge # Acute kideny injury -BUN and creatinine noted to be 27/1.4 most likely secondary to dehydration -Resolved # Hypothyroidism. - TSH 0.76 and free T4 1.04 -Home dose Levothyroxine at 137 mcg daily. #Hyperlipidemia -Home dose pravastatin 40 mg daily #Psychiatric -Patient's daughter reported that she thinks her father stop take his insulin for the last 3 days prior to admission on purpose as she withdrawn visiting him because of the flu symptoms -Psych evaluation was obtained, thanks for the evaluation -Referral for [facility] was provided on discharge with instructions to call the provided phone number to inquire about an intake appointment CC2 nutrition evaluation was obtained, suggestion to continue with current diet DVt Px : alps and heparin Code full Consultation endocrinology, psychiatric, nutrition Allergies: Coded Allergies: NO KNOWN ALLERGIES (02/29/16) Disposition Summary Disposition Principal Diagnosis: Diabetic ketoacidosis Additional Diagnosis: Acute kidney injury Discharge Disposition: home or self care Discharge Instructions General Discharge Information Code Status: Full Code Patient's Diet: Consistent carbohydrate 2 Patient's Activity: As tolerated Follow-Up Instructions/Appts: Please see primary care physician Dr. Sandoval within one week of discharge. Please follow up with your steam and power superintendent Dr. Marie within one week of discharge. Please follow-up with [facility] outpatient psychiatry after discharge. Medications at Discharge Discharge Medications: Stop taking the following medications: Insulin Lispro (Humalog) (Unknown Strength) VIAL Inject into fatty tissue BEFORE MEALS Qty = 40 Insulin-Lantus (Lantus) 100 UNIT/1 ML VIAL Inject into fatty tissue TAKE AT BEDTIME Continue taking these medications: Levothyroxine Sodium (Levothyroxine Sodium) 137 MCG TABLET 1 Tablet ORAL DAILY Qty = 90 Comments: PER PT Pravastatin Sodium (Pravastatin Sodium) 40 MG TABLET 1 Tablet ORAL DAILY Qty = 90 Comments: PER PT Start taking the following new medications: Insulin Detemir (Levemir) 100 UNIT/ML VIAL 10 Units SUB-Q TWICE DAILY Qty = 6 No Refills Comments: LAST GIVEN 01/16/17 @ 1130 Insulin Aspart (Novolog) 100 UNIT/ML VIAL 0 SUB-Q BEFORE MEALS AND AT BEDTIME Qty = 10 No Refills Instructions: BEFORE MEALS Blood Insulin Sugar Units <80 0 81-150 6 151-200 7 201-250 8 251-300 9 301-350 10 351-400 11 >400 12 units and Call Doctor AT BEDTIME Blood Insulin Sugar Units <80 0 81-100 0 101-200 0 201-250 0 251-300 2 301-350 3 351-400 4 >400 5 units and Call Doctor Copies To: MADYSON JOHNSON,DAKOTA Gallardo; AFSHIN JOHNSON,RASHI Hernandez
[2017-01-15 22:52] VITALS: BP 115/60
[2017-01-16 07:41] VITALS: BP 113/67
[2017-01-16 08:13] VITALS: BP 145/90
--- NOTE | 2017-01-16 08:27 | PN- Housestaff ---
See Addendum LISETTE JOHNSON,IMGE 01/16/17 0826: Subjective Follow-up For: Diabetic ketoacidosis T1DM Subjective: No acute events overnight. Patient seen and examined this morning. He feels well and has no complaints. He is eager to go home to take care of his cats. He reports that he currently does not have a PCP but is interested in establishing with one. Review of Systems Constitutional: Reports: no symptoms. Objective Last 24 Hrs of Vital Signs/I&O Vital Signs Date Time Temp Pulse Resp B/P Pulse O2 O2 Flow FiO2 Ox Delivery Rate 01/16 0741 98.4 73 18 113/67 98 Room Air 01/15 2252 98.9 76 18 115/60 93 Room Air 01/15 1404 99.2 82 18 118/64 96 Room Air Intake & Output 01/16 1600 01/16 0800 01/16 0000 Intake Total 480 480 Output Total Balance 480 480 Intake, Oral 480 480 Physical Exam General Appearance: Alert, Oriented X3, No Acute Distress HEENT: Atraumatic, Mucous Membr. moist/pink Neck: Supple Cardiovascular: Regular Rate, Normal S1, Normal S2, No Murmurs, Gallops, Rubs Lungs: Clear to Auscultation Abdomen: Soft, No Tenderness, Positive Bowel Sounds Extremities: No Clubbing, No Cyanosis, No Edema Current Medications: Current Medications Sig/Pollo Start time Last Medication Dose Route Stop Time Status Admin Acetaminophen 650 MG Q6P PRN 01/13 2115 AC 01/15 PO 0039 Heparin Sodium 5,000 UNIT Q8 01/13 2200 AC 01/14 (Porcine) SC 1432 Insulin Aspart 0 AT BEDTIME 01/14 2200 AC SC Insulin Aspart 0 TIDAC 01/14 0800 AC 01/16 SC 1216 Insulin Detemir 10 UNITS BID 01/14 0745 AC 01/16 SC 1130 Levothyroxine Sodium 0.137 MG DAILY AC 01/14 0700 AC 01/16 PO 0612 Melatonin 5 MG ONCE ONE 01/15 2200 DC 01/15 PO 01/15 2201 2150 Metoclopramide HCl 10 MG Q6P PRN 01/13 2115 AC IV Oxycodone HCl 5 MG Q6P PRN 01/13 2115 AC PO Patient Medication 1 ED .STK-MED ONE 01/15 1256 DC Teaching ED 01/15 1257 Pravastatin Sodium 40 MG 1700 01/14 1700 AC 01/15 PO 1650 Assessment/Plan Assessment: Mr. Kraft is a 66 y/o M with PMHx of T1DM, hypothyroidism and HLD who is admitted for DKA. #DKA: Likely secondary to medication noncompliance as well as possible viral illness. Blood sugars currently well-controlled. * Patient will continue his inpatient insulin regimen on discharge: Levemir 10 units SQ BID and sliding scale Novolog TIDAC: for glucose 80-150 mg/dl give 6 units, 151-200 give 7 units, 201-250 give 8 units, 251-300 give 9 units, 301-350 give 10 units, 351-400 give 11 units and >400 give 12 units, as well as a separate bedtime sliding scale: for glucose 80-250 mg/dl give no insulin, 251- 300 give 2 units, 301-350 give 3 units, 351-400 give 4 units and >400 give 5 units. * Patient was instructed to follow up with his sound ranging crewmember Dr. Marie within one week of discharge who can make further adjustments to his insulin regimen. * Patient was given referral for PCP Dr. Sandoval with instructions to follow up with her within one week of discharge. Diet: Consistent Carbohydrate 2 DVT PPx: HSQ and ALPs CODE: FULL Problem List: 1. DKA (diabetic ketoacidoses) 2. T1DM (type 1 diabetes mellitus) Pain Ratin Pain Location: N/A Pain Goal: Remain pain free Pain Plan: Oxycodone 5 mg PO Q6H PRN for moderate pain (scale 4-6) Tylenol 650 mg PO Q6H PRN for mild pain (scale 1-3) Tomorrow's Labs & Rationales: None Discharge Plan Discharge Disposition: home Stable for Discharge? Yes Anticipated Discharge (Day): today JESSICA HAYS MD 01/16/17 1030: Attending MD Review Statement Attending Statement Attending MD Statement: examined this patient, discuss w/resident/PA/SIEBEL ARCHITECT, agreed w/resident/PA/SIEBEL ARCHITECT, reviewed EMR data (avail), discussed with nursing, discussed with case mgmt, reviewed images Attending Assessment/Plan: Patient is keen on leaving today. He really wants to go home to take care of his cats. We spoke to Dr. Shepherd and we are going to discharge him on the regimen recommended by Dr. Shepherd. He wanted a PCP referral and given that he lives in [facility] [place] is convenient for him so we gave him Heaven Sandoval MD's office number and he is going to call to make a follow-up appointment. He understands the need for close diabetic care including his long acting insulin, his short- acting insulin and the fact that he went into DKA from missing a couple of doses.
--- NOTE | 2017-01-16 08:33 | Patient Discharge Instructions ---
Discharge Instructions General Discharge Information You were seen/treated for: Diabetic ketoacidosis Acute kidney injury Watch for these problems: Blood sugar levels that are too high or low Fruity breath Increased thirst or urination Pain in your stomach Shortness of breath Special Instructions: Please see primary care physician Dr. Sandoval within one week of discharge. Please follow up with your feed mill tender Dr. Marie within one week of discharge. Diet Recommended Diet: Diabetic Activity Full Activity/No Limits: Yes Acute Coronary Syndrome Inclusion Criteria At DC or during hospital stay patient has or had the following: ACS DIAGNOSIS No Discharge Core Measures Meds if any: Prescribed or Continued at Discharge Meds if any: NOT Prescribed or Continued at Discharge Congestive Heart Failure Inclusion Criteria At DC or during hospital stay patient has or had the following: CHF DIAGNOSIS No Discharge Core Measures Meds if any: Prescribed or Continued at Discharge Meds if any: NOT Prescribed or Continued at Discharge Cerebrovascular accident Inclusion Criteria At DC or during hospital stay patient has or had the following: CVA/TIA Diagnosis No Discharge Core Measures Meds if any: Prescribed or Continued at Discharge Meds if any: NOT Prescribed or Continued at Discharge Venous thromboembolism Inclusion Criteria VTE Diagnosis No VTE Type NONE VTE Confirmed by (Test) NONE Discharge Core Measures - Per Current guidelines, there needs to be overlap - treatment for the first 5 days of Warfarin therapy. - If discharged on Warfarin prior to 5 days of - overlap therapy, the patient will need to be - assessed for post discharge needs including - *Post discharge parental anticoagulation - *Warfarin and/or parental anticoagulation education - *Follow up date to check INR post discharge At least 5 days overlap therapy as Inpatient No Meds if any: Prescribed or Continued at Discharge Note: Overlap Therapy is Warfarin and Anticoagulant Meds if any: NOT Prescribed or Continued at Discharge
--- NOTE | 2017-01-16 09:20 | PN- Diabetes ---
Assessment/Plan Assessment: The patient feels about the same. He is eating well. The labs show that his ketoacidosis has resolved. However his white blood count was down to 3.1 yesterday perhaps to viral illness. In talking with the patient he had discontinued his Lantus for a few days prior to admission. He was just using Humalog and then could not find his insulin at home. He states it had slipped between the mattress and his headboard and he did not know where it was. Therefore he went without any insulin at all for a few days and finally presented with ketoacidosis. Patient may also have had an intercurrent viral illness. His hemoglobin A1c done at the time of admission is 6.6% Fingerstick blood sugars late in the day yesterday were 210 before dinner and 200 at bedtime. This morning his blood sugars to 269 but this was done after breakfast because the patient ate before he got his insulin. Plan: Suggests that the patient can go home on his present insulin regimen. He is presently on Levemir 10 units twice a day as well as sliding scale NovoLog sliding with 6 units for 80-150. Adjustments in his insulin regimen can be made as an outpatient. Subjective Subjective: Feels okay Review of Systems Constitutional: Denies: chills, fever. Cardiovascular: Denies: chest pain. Respiratory: Denies: short of breath. Gastrointestinal: Denies: abdominal pain, nausea, vomiting. Musculoskeletal: Denies: back pain. Skin: Reports: no symptoms. Objective Last 24 Hrs of Vital Signs/I&O Vital Signs Date Time Temp Pulse Resp B/P Pulse O2 O2 Flow FiO2 Ox Delivery Rate 01/16 0741 98.4 73 18 113/67 98 Room Air 01/15 2252 98.9 76 18 115/60 93 Room Air 01/15 1404 99.2 82 18 118/64 96 Room Air 01/15 1200 99.2 64 22 140/70 96 Intake & Output 01/16 1600 01/16 0800 01/16 0000 Intake Total 480 480 Output Total Balance 480 480 Intake, Oral 480 480 Vital Signs Date Time Temp Pulse Resp B/P Pulse O2 O2 Flow FiO2 Ox Delivery Rate 01/16 0741 98.4 73 18 113/67 98 Room Air 01/15 2252 98.9 76 18 115/60 93 Room Air 01/15 1404 99.2 82 18 118/64 96 Room Air 01/15 1200 99.2 64 22 140/70 96 Intake & Output 01/16 1600 01/16 0800 01/16 0000 Intake Total 480 480 Output Total Balance 480 480 Intake, Oral 480 480 Physical Exam General Appearance: well developed/nourished, alert, awake Head: normal appearance Neck: normal inspection Cardiovascular: regular rate/rhythm Abdomen: normal bowel sounds Extremities: normal inspection Current Medications: Current Medications Sig/Pollo Start time Last Medication Dose Route Stop Time Status Admin Acetaminophen 650 MG Q6P PRN 01/13 211 AC 01/15 PO 0039 Heparin Sodium 5,000 UNIT Q8 01/13 2200 AC 01/14 (Porcine) SC 1432 Insulin Aspart 6 UNITS ONCE ONE 01/15 1015 DC 01/15 SC 01/15 1016 1029 Insulin Aspart 0 AT BEDTIME 01/14 2200 SC Insulin Aspart 0 TIDAC 01/14 0800 AC 01/16 SC 0811 Insulin Detemir 10 UNITS BID 01/14 0745 AC 01/15 SC 2139 Levothyroxine Sodium 0.137 MG DAILY AC 01/14 0700 AC 01/16 PO 0612 Melatonin 5 MG ONCE ONE 01/15 2200 DC 01/15 PO 01/15 2201 2150 Metoclopramide HCl 10 MG Q6P PRN 01/13 2115 AC IV Oxycodone HCl 5 MG Q6P PRN 01/13 2115 AC PO Patient Medication 1 ED .STK-MED ONE 01/15 1256 ME Teaching ED 01/15 1257 Pravastatin Sodium 40 MG 1700 01/14 1700 AC 01/15 PO 1650
[2017-01-16] MEDS ORDERED: LEVEMIR100 UNIT/1 SQ ×2 (09:31→09:32)
[2017-01-16] MEDS ORDERED: NOVOLOG100 UNIT/2 SQ (09:46)
[2017-01-16 15:09] VITALS: BP 105/44
== END 2017-01-16 17:00 | DRG 638 ==
LOC: ENRESERVTM → ENRESERVDT → ERH 17:06 → ENPENDDIS 19:14 → 2NB 19:14 → CRI 19:14 → ERHI 19:14 → CRI 01-14 00:38 → 2NB 01-14 15:58
PROVIDERS: Internal Medicine; Physician Assistant Medical; Radiology Diagnostic Radiology; ADMIT Student in an Organized Health Care Education/Training Program
DX: E10.10 Type 1 diabetes mellitus with ketoacidosis without coma (principal); N17.9 Acute kidney failure, unspecified; F33.9 Major depressive disorder, recurrent, unspecified; E87.1 Hypo-osmolality and hyponatremia; I10 Essential (primary) hypertension; Z79.4 Long term (current) use of insulin; E03.9 Hypothyroidism, unspecified; E78.5 Hyperlipidemia, unspecified; Z91.14 Patient's other noncompliance with medication regimen; Z87.891 Personal history of nicotine dependence
CPT/HCPCS: 2NBP; ERO; 36415; 80307; 81003; 82436; 87040; 87804; 87804-59; 93005; 93010; 96360; 96361; 96365; 96366; 96376; 99233; 99291; G0480; J1644; J1815; J7042

== ENCOUNTER 2017-11-04 19:22 | Emergency (ER) | payer OTHER ==
[~2017-11-04 19:22] MED LIST changes: +ASPIRIN EC81 M1 PO; +LEVAQUIN750 M1 PO; +LEVEMIR100 UNIT/1 SC; +LEVEMIR100 UNIT/1 SQ; +NOVOLOG100 UNIT/2 SQ; +VALACYCLOVIR1000 MG PO
[2017-11-04 19:35] VITALS: BP 154/83
--- NOTE | 2017-11-04 19:46 | ED AMS/SEIZURE/WEAK/DIZZY ---
History of Present Illness General Chief Complaint: Altered Mental Status Stated Complaint: BIBA AMS Source: patient, old records, EMS Exam Limitations: no limitations Vital Signs & Intake/Output Vital Signs & Intake/Output Vital Signs Date Time Temp Pulse Resp B/P B/P Pulse O2 O2 Flow FiO2 Mean Ox Delivery Rate 11/04 1934 97.5 77 20 154/83 97 Room Air Allergies Coded Allergies: NO KNOWN ALLERGIES (02/29/16) Reconcile Medications Aspirin (Ecotrin*) 81 MG TABLET.DR 1 TAB PO DAILY HEART/BLOOD (Reported) Insulin Detemir (Levemir) 100 UNIT/ML VIAL 15 UNITS SC BID DM (Reported) Insulin Lispro (Humalog) (Unknown Strength) VIAL (Unknown Dose) SC TIDAC/HS DM (Reported) Levofloxacin (Levaquin) 750 MG TABLET 1 TAB PO DAILY PNEUMONIA Levothyroxine Sodium 137 MCG TABLET 1 TAB PO DAILY THYROID (Reported) Pravastatin Sodium 40 MG TABLET 1 TAB PO DAILY CHOLESTEROL (Reported) Valacyclovir HCl (Valacyclovir) 1,000 MG TABLET 1 TAB PO TID SHINGLES ( Reported) Core Measure Meds Pre-Hospital aspirin Triage Note: PT BIBJacky FROM HOME AFTER RUNNING OUT OF HIS LEVEMIR AND TAKING HIS 1 YEAR OLD TRADJENTA. PT GCS WAS 11 ON EMS ARRIVAL, GLUCAGON GIVEN IN FIELD AND BS INCREASED TO 102. PT ARRIVES ALERT AND ORIENTED, GCS 15, IT APPEARS HE WAS INCONTINIENT OF URINE. PT DENIES COMPLAINTS, SKIN WARM AND DRY. Triage Nurses Notes Reviewed? yes Onset: Just prior to arrival Duration: minute(s):, gone now Timing: single episode today Injury Environment: home Severity: severe No Modifying Factors: none Modifying Factors: Worsens With: other. HPI: Over one hour Pprior to admission the patient dosed himself with short-acting insulin because he ran out of his Levemir and was found with decreased level of consciousness. Finger stick blood sugar was 43 and was given IM glucagon. He awoke en route. He denies fever chills nausea vomiting diarrhea abdominal pain chest pain shortness of breath headache dysuria rash bleeding missing meals. Past History Travel History Traveled to [place] past 21 day No Medical History Any Pertinent Medical History? see below for history Neurological: NONE EENT: NONE Cardiovascular: hyperlipidemia Respiratory: NONE Gastrointestinal: NONE Hepatic: NONE Renal: NONE Musculoskeletal: NONE Psychiatric: NONE Endocrine: diabetes, hyperthyroidism Blood Disorders: NONE Cancer(s): NONE History of MRSA: No History of VRE: No History of CDIFF: No Surgical History Surgical History: non-contributory Psychosocial History Who do you live with Patient/Self Services at Home None What is your primary language Croatian Family History Family History, If Any: Relation not specified for: *No pertinent family history Hx Contributory? No Review of Systems Review of Systems Constitutional: Reports: see HPI, weakness. EENTM: Reports: no symptoms. Respiratory: Reports: no symptoms. Cardiovascular: Reports: no symptoms. GI: Reports: no symptoms. Genitourinary: Reports: no symptoms. Musculoskeletal: Reports: no symptoms. Skin: Reports: no symptoms. Neurological/Psychological: Reports: see HPI, weakness. Hematologic/Endocrine: Reports: no symptoms. Immunologic/Allergic: Reports: no symptoms. All Other Systems: Reviewed and Negative Physical Exam Physical Exam General Appearance: well developed/nourished, alert, awake, anxious Head: atraumatic, normal appearance Eyes: Bilateral: normal appearance, PERRL, EOMI. Ears, Nose, Throat: normal pharynx, normal ENT inspection, hearing grossly normal Neck: normal inspection, supple, full range of motion, no midline tenderness Respiratory: normal breath sounds, chest non-tender, no respiratory distress, quiet respiration, lungs clear Cardiovascular: regular rate/rhythm, normal peripheral pulses, norml femoral pulses equa Peripheral Pulses: 4+ carotid (R), 4+ carotid (L) Gastrointestinal: normal bowel sounds, soft, non-tender, no organomegaly Back: normal inspection, normal range of motion, no vertebral tenderness Extremities: normal range of motion, no ligament instability Neurologic/Psych: no motor/sensory deficits, awake, alert, oriented x 3, normal gait, normal mood/affect, fiberglass laminator II-XII nml as tested Reflexes: 2+: bicep (R), bicep (L). Skin: intact, normal color, warm/dry Lymphatic: no anterior cervical hortensia Core Measures ACS in differential dx? No CVA/TIA Diagnosis No Sepsis Present: No Sepsis Focused Exam Completed? No Progress Differential Diagnosis: dehydration, drug intoxication, electrolyte imbalance, hypoglycemia Plan of Care: food Initial ED EKG: none Departure Departure Time of Disposition: 2011 Disposition: HOME OR SELF CARE Condition: Stable Clinical Impression Primary Impression: Hypoglycemia due to insulin Referrals: Frank JOHNSON,Husam Irving (PCP/Family) Departure Forms: Customer Survey General Discharge Information
== END 2017-11-04 20:31 ==
LOC: ERH 19:22
DX: E11.649 Type 2 diabetes mellitus with hypoglycemia without coma (principal)

== ENCOUNTER 2018-06-20 18:32 | Emergency (ER) | payer OTHER ==
--- NOTE | 2018-06-20 18:35 | ED GENERAL ADULT ---
History of Present Illness General Chief Complaint: General Adult Stated Complaint: HYPOGLYCEMIA Source: patient, old records Exam Limitations: no limitations Vital Signs & Intake/Output Vital Signs & Intake/Output Vital Signs Date Time Temp Pulse Resp B/P B/P Pulse O2 O2 Flow FiO2 Mean Ox Delivery Rate 06/20 2130 98.2 84 16 134/78 99 Room Air 06/202 Room Air 06/20 1837 97.8 73 20 141/81 98 Room Air ED Intake and Output 06/21 0000 06/20 1200 Intake Total 1240 Output Total Balance 1240 Intake, IV 1000 Intake, Oral 240 Allergies Coded Allergies: NO KNOWN ALLERGIES (02/29/16) Reconcile Medications Aspirin (Ecotrin*) 81 MG TABLET.DR 1 TAB PO DAILY HEART/BLOOD (Reported) Insulin Detemir (Levemir) 100 UNIT/ML VIAL 15 UNITS SC BID DM (Reported) Insulin Lispro (Humalog) (Unknown Strength) VIAL (Unknown Dose) SC TIDAC/HS DM (Reported) Levofloxacin (Levaquin) 750 MG TABLET 1 TAB PO DAILY PNEUMONIA Levothyroxine Sodium 137 MCG TABLET 1 TAB PO DAILY THYROID (Reported) Pravastatin Sodium 40 MG TABLET 1 TAB PO DAILY CHOLESTEROL (Reported) Valacyclovir HCl (Valacyclovir) 1,000 MG TABLET 1 TAB PO TID SHINGLES ( Reported) Triage Nurses Notes Reviewed? yes HPI: 67-year-old man with past medical history significant for insulin-dependent diabetes mellitus seen for evaluation of hypoglycemia. Patient has had multiple ED evaluations for diabetic related issues including hyper glycemia/hypoglycemia /DKA/altered mental status. Patient reports that around 4 PM this afternoon he was playing tennis. Prior to playing his blood sugar was measured to be >200. He apparently "passed out" while playing and EMS was contacted. His blood sugar in the field according to the patient was reportedly "27". He reportedly received glucose en route to the hospital and awoke without any altered mental status or symptoms. Accu-Chek demonstrated a glucose of 103. Presently patient states that he feels well, denies any obvious injury, and otherwise feels fine. He is frustrated that there is not a "cure" for diabetes. He denies any head pain, chest pain, shortness of breath, abdominal pain, or neurologic symptoms. (Pearl JOHNSON,Sherman) Past History Travel History Traveled to [place] past 21 day No Medical History Any Pertinent Medical History? see below for history Neurological: NONE EENT: NONE Cardiovascular: hyperlipidemia Respiratory: NONE Gastrointestinal: NONE Hepatic: NONE Renal: NONE Musculoskeletal: NONE Psychiatric: NONE Endocrine: diabetes, hyperthyroidism Blood Disorders: NONE Cancer(s): NONE History of MRSA: No History of VRE: No History of CDIFF: No Surgical History Surgical History: non-contributory Psychosocial History Who do you live with Patient/Self Services at Home None What is your primary language Hebrew Family History Family History, If Any: Relation not specified for: *No pertinent family history Hx Contributory? No (Sherman Kang MD) Review of Systems Review of Systems Constitutional: Reports: see HPI. (Sherman Kang MD) Physical Exam Physical Exam General Appearance: well developed/nourished, no apparent distress, alert, awake , anxious Comments: General - well developed, well nourished elderly man in no acute distress HEENT - NCAT, PERRL, EOMI, anicteric sclera Neck- Supple, no JVD/HJR, no bruits, trachea midline,, no palpable step-offs or crepitus Cardio - S1, S2 w/o murmurs/gallops/rubs; regular rate and rhythm Resp - Clear to auscultation bilaterally GI - Soft, nontender, nondistended, bowel sounds present Neuro - Awake and alert, CN II - XII grossly intact, speech/sensation/ coordination intact, speech fluent, face symmetric, strength 5/54, gait not assessed Extremities - No edema, pulses intact Core Measures ACS in differential dx? No CVA/TIA Diagnosis: No Sepsis Present: No Sepsis Focused Exam Completed? No (Sherman Kang MD) Progress Differential Diagnoses I considered the following diagnoses in my evaluation of the patient: Hypoglycemia secondary to diabetes mellitus Plan of Care: see above Initial ED EKG: none Comments: Patient reportedly feels well and has a normal blood sugar. Vital signs remain within normal limits. Physical examination demonstrates a normal cardio pulmonary examination and a complete neurologic examination is unremarkable. Patient is instructed to follow-up with his fur floor worker as an outpatient for further evaluation of his diabetic regimen. He is instructed to contact 911 or return to the ED should his symptoms return. (Sherman Kang MD) Departure Departure Disposition: HOME OR SELF CARE Condition: Stable Clinical Impression Primary Impression: Hypoglycemia Referrals: Frank JOHNSON,Husam H. Additional Instructions: Continue to check your blood sugar and follow your insulin regimen as previous directed. Schedule an appointment with your fur floor worker and let them know about your ED visit. Contact 911 should your symptoms return peer Departure Forms: Customer Survey General Discharge Information (Pearl JOHNSON,Sherman) Resident Co-Sign Statement Statement: ED Attending supervision documentation- [X] I saw and evaluated the patient. I have also reviewed all the pertinent lab results and diagnostic results. I agree with the findings and the plan of care as documented in the Resident's documentation. [X] I have reviewed the ED Record and agree with the Resident's documentation. [] Additions or exceptions (if any) to the Resident's note and plan are summarized below: [] (Shireen JOHNSON,Riky Mckeon) Critical Care Note Critical Care Note Critical Care Time: non-applicable (Sherman Kang MD)
[2018-06-20 21:30] VITALS: BP 134/78
== END 2018-06-20 21:30 ==
LOC: ERH 18:32
DX: E11.649 Type 2 diabetes mellitus with hypoglycemia without coma (principal); Z79.4 Long term (current) use of insulin
CPT/HCPCS: 96374